=== PATIENT | female | born 1950 | race African-American/Black ===

== ENCOUNTER 2019-11-12 17:34 | Inpatient (IN) | payer OTHER ==
[~2019-11-12] VITALS: Ht 160 cm; Wt 90.7 kg
[2019-11-12 19:12] LABS: Urine Bacteria NONE SEEN /hpf (None Seen); Urine Blood Negative /uL (Negative); Urine Mucus FEW (None Seen); Urine Specific Gravity 1.021 (1.001-1.035); Urine WBC 6 /hpf (0 - 5)
[2019-11-12 19:26] LABS: Alcohol, Urine < 3.0 mg/dL (0-10); Amphetamine Screen, Urine NEGATIVE (NEGATIVE); Barbiturate Scree,Urine NEGATIVE (NEGATIVE); Benzodiazephine Screen, Urine NEGATIVE (NEGATIVE); Cannabinoid Screen, Urine NEGATIVE (NEGATIVE); Cocaine Screen, Urine NEGATIVE (NEGATIVE); Opiate Scree,Urine NEGATIVE (NEGATIVE); Phencyclidine Screen, Urine NEGATIVE (NEGATIVE)
[2019-11-12 19:28] LABS: Basophils # (auto) 0 10 ^3/uL (0-0.2); Basophils % (auto) 0.6 % (0.0-2.0); Eosinophils # (auto) 0 10 ^3/uL (0-0.8); Eosinophils % (auto) 0.3 % (0.0-7.0); Hematocrit 45.4 % (36.0-46.0); Hemoglobin 15.4 g/dL (12.2-16.2); Lymphocytes # (auto) 1.9 10 ^3/uL (0.4-5.4); Lymphocytes % (auto) 32.3 % (10.0-50.0); Mean Corpuscular Hemoglobin 31.9 pg (28.0-32.0); Mean Corpuscular Volume 93.8 fL (80.0-100.0); Monocytes # (auto) 0.6 10 ^3/uL (0-1.3); Monocytes % (auto) 10.5 % (0.0-12.0); Neutrophils # (auto) 3.4 10 ^3/uL (1.6-8.6); Neutrophils % (auto) 56.3 % (37.0-80.0); Nucleated Red Blood Cells % 0.2 %; Platelet Count (auto) 194 10^3/uL (140-450); Red Blood Cells 4.84 10^6/uL (4.0-5.20); Red Cell Distribution Width 13.3 % (11.8-14.3)
[2019-11-12 19:41] LABS: Alanine Aminotransferase 38 U/L (13-56); Albumin 3.7 g/dL (3.4-5.0); Anion Gap 11 (5-15); Aspartate Aminotransferase 29 U/L (15-37); BUN/Creatinine Ratio 8.2; Blood Alcohol < 3.0 mg/dL (0-5); Blood Urea Nitrogen 8 mg/dL (7-18); Calcium 9.5 mg/dL (8.5-10.1); Carbon Dioxide 23 mmol/L (21-32); Chloride 107 mmol/L (98-107); GFR African American 72 mL/min; GFR Non-African American 59 mL/min; Glucose 145 mg/dL (74-106); Potassium 3.6 mmol/L (3.5-5.1); Sodium 141 mmol/L (136-145)
[2019-11-12 19:45] LABS: Alkaline Phosphatase 62 U/L (45-117); Bilirubin, Total 0.4 mg/dL (0.2-1.0); Total Protein 8.2 g/dL (6.4-8.2)
[2019-11-12 19:46] LABS: Lactic Acid w/Reflex 2.4 mmol/L (0.4-2.0)
[2019-11-12] MEDS ORDERED: PIPERACILLIN-TAZOB 3.375GM 100 ML IV ONE (20:00)
[2019-11-12] MEDS ORDERED: SODIUM CHLORIDE 0.9% 500 ML IV ONE (20:00)
[2019-11-12] MEDS ORDERED: cloNIDine HCL 0.1 MG TAB PO ONE (20:15)
[2019-11-12] MEDS ORDERED: VANCOMYCIN 1GM/250ML 250 ML IV ONE (22:45)
[2019-11-12] MEDS ORDERED: SODIUM CHLORIDE 0.9% 1,000 ML IV ONE (22:45)
[2019-11-13] VITALS (7 sets, daily range): BP systolic 136–168; BP diastolic 72–93
[2019-11-13] MEDS ORDERED: MORPHINE SULFATE 4 MG/ML SYR/VIAL IV PRN (02:45)
[2019-11-13] MEDS ORDERED: ACETAMINOPHEN 325 MG TAB PO PRN ×2 (02:45→11:00)
[2019-11-13] MEDS ORDERED: VANCOMYCIN PER PHARMACY 0 MG IV SCH (02:45)
[2019-11-13] MEDS ORDERED: ONDANSETRON HCL 4 MG/2 ML VIAL IV PRN (02:45)
[2019-11-13] MEDS ORDERED: DOCUSATE SOD 100 MG CAP PO PRN (02:45)
[2019-11-13] MEDS ORDERED: MORPHINE SULF INJ 2 MG/ML SYRINGE 1ML IV PRN (02:45)
[2019-11-13] MEDS ORDERED: NITROGLYCERIN 0.4 MG SL TAB SL PRN (02:45)
--- NOTE | 2019-11-13 04:45 | NUR ---
Telemetry admit from ER to [facility] Unit [place] GARCIA admitted to Telemetry unit. Patient oriented to ARACELI WOMACK, primary RN, unit, room, bed, and unit policies regarding patient care and visiting hours. Patient now on continuous telemetry monitoring, tele box # 4 and telemetry reading on arrival to unit is sinus rhythm. Patient is alert and oriented x4. Patient denies pain or shortness of breath at this time. No sign/symptoms of distress noted or verbalized at this time. Instructed on plan of care and encouraged patient to call for assistance as needed, patient verbalized understanding. Bed is locked in lowest position, side rails x 2 are up, and call light is within reach.
[2019-11-13] MEDS ORDERED: LEVO75TA6 PO (05:34)
[2019-11-13] MEDS ORDERED: CYCL15CA PO (06:02)
[2019-11-13] MEDS ORDERED: IBUP100S11 GT (06:02)
[2019-11-13] MEDS ORDERED: BACL10TA PO (06:02)
[2019-11-13] MEDS: SODIUM CHLOR 0.9% PF (SALINE LOCK) 10ML VIAL/SYR IV SCH ×2 (06:23→14:21)
[2019-11-13] MEDS ORDERED: LEVOTHYROXINE SODIUM 25 MCG TAB PO SCH (07:00)
--- NOTE | 2019-11-13 08:00 | NUR ---
ASSESSMENT NOTE PT IS ALERT, ORIENTED X4, SITTING AT THE SIDE OF THE BED,NO DISTRESS NOTED, ON ROOM AIR, ABLE TO SELF REPOSITION AND VERBALIS HER NEEDS, PT CONTINUE A SYMPTOMATIC FOR COVID, MADE AWARE THAT THE SECOND TEST RESULTS IS STILL PENDING, VERBALIS UNDERSTANDING, CALL LIGHT WITHIN REACH
[2019-11-13] MEDS ORDERED: FAMOTIDINE 20 MG TAB PO SCH (10:00)
[2019-11-13] MEDS ORDERED: PANTOPRAZOLE 40 MG/10 ML VIAL INJ IV SCH (10:00)
[2019-11-13] MEDS ORDERED: FUROSEMIDE 20 MG TAB PO SCH (11:00)
[2019-11-13] MEDS ORDERED: amLODIPine BESYLATE 5 MG TAB PO SCH (11:00)
[2019-11-13] MEDS ORDERED: HYDROcodone-ACET 5/325MG TAB PO PRN (11:00)
[2019-11-13] MEDS ORDERED: POTASSIUM CHL 20 Meq TABLET PO SCH (11:00)
[2019-11-13] MEDS ORDERED: VANCOMYCIN 750mg/250ml 250 ML IV SCH (12:00)
--- NOTE | 2019-11-13 12:35 | NUR ---
COVID RESULTS ARE - VE CHARGE NURSE AWARE REPORT GIVEN TO KARMEN Turner RN WITH ALL PATIENT'S UPDATE
--- NOTE | 2019-11-13 12:45 | NUR ---
TRANSFER PT OUT OF THE COVID UNIT, KARMEN Turner RN AT HER SIDE, NO DISTRESS NOTED
--- NOTE | 2019-11-13 12:54 | NUR ---
ASSUMED CARE RECEIVED REPORT FROM SARAI GIBSON. PATIENT TRANSFERRED TO ROOM 217A. NO S/S OF DISTRESS, SOB, PAIN. WILL CONTINUE TO MONITOR
[2019-11-13] MEDS ORDERED: AML5T PO (19:19)
[2019-11-13] MEDS ORDERED: POTA-220 PO (19:19)
[2019-11-13] MEDS ORDERED: FUR20T PO (19:19)
--- NOTE | 2019-11-13 19:42 | NUR ---
Patient heart rate was noted to be 165+. Upon seeing patient she was sitting in bed with no complaints of chest pain. Dr. Mohan was notified and asked to have EKG done.
--- NOTE | 2019-11-13 19:51 | NUR ---
EKG performed and heart rate noted to be at 103 with a rhythm of sinus tachycardia. Dr. Mohan notified of EKG.
--- NOTE | 2019-11-13 20:14 | NUR ---
Dr. Mohan discussed patient EKG with . It was decided to move forward with patient discharge.
--- NOTE | 2019-11-13 20:46 | NUR ---
IV removal IV DC'd with sterile technique, catheter fully intact. Pressure dressing applied to site. Patient tolerated procedure well.
--- NOTE | 2019-11-13 21:19 | NUR ---
Discharge instructions given as ordered. Encourage to follow up with PMD as instructed. All questions and concerns addressed. Patient verbalized understanding. Medication reconciliation form completed and copy given to patient. IV removed with catheter intact, pressure dressing applied. Telemetry unit returned to ICU. Patient taken to vehicle via wheelchair with all personal belongings, accompanied by staff and family member. No distress noted at time of departure. Addendum: 11/13/19 at 0 by ELVIA HILL RN Discharge time 2054
== END 2019-11-13 20:55 | disposition home or self-care (01) | DRG 305 ==
LOC: ER 17:34 → TELE 17:35 → TELE-CENTR 11-13 04:20 → TELE-EAST 11-13 05:11 → TELE-CENTR 11-13 12:45
PROVIDERS: ADMIT Nurse Practitioner Family; ATTEND Internal Medicine
DX: I16.0 Hypertensive urgency (principal); Z20.828 Contact with and (suspected) exposure to other viral communicable diseases; J45.909 Unspecified asthma, uncomplicated; F41.9 Anxiety disorder, unspecified; I10 Essential (primary) hypertension; E78.5 Hyperlipidemia, unspecified; E66.01 Morbid (severe) obesity due to excess calories; E03.9 Hypothyroidism, unspecified; G89.29 Other chronic pain; Z68.35 Body mass index [BMI] 35.0-35.9, adult; Z91.14 Patient's other noncompliance with medication regimen
CPT/HCPCS: 36415; 70450; 71045; 80053; 80307; 80320; 81001; 83036; 83605; 83615; 83880; 84443; 84484; 85025; 87040; 87086; 87426; 93005; C9113; G0378; J2543

== ENCOUNTER 2020-11-26 17:45 | Inpatient (IN) | payer OTHER ==
[~2020-11-26] VITALS: Ht 160 cm; Wt 110.0 kg
[2020-11-26 17:45] VITALS: BP 101/65
[~2020-11-26 17:45] MED LIST: AML5T PO; BACL10TA PO; CYCL15CA PO; FUR20T PO; IBUP100S11 GT; LEVO75TA6 PO; POTA-220 PO
[2020-11-26] MEDS ORDERED: methylPREDNISolone SOD SUCC 125 MG/2 ML VL IV ONE (18:00)
[2020-11-26 18:47] LABS: Hematocrit 47.8 % (36.0-46.0); Hemoglobin 15.9 g/dL (12.2-16.2); Mean Corpuscular Hemoglobin 31.3 pg (28.0-32.0); Mean Corpuscular Hgb Conc. 33.3 g/dL (32.0-36.0); Red Blood Cells 5.09 10^6/uL (4.0-5.20); Red Cell Distribution Width 14.1 % (11.8-14.3)
[2020-11-26 18:49] LABS: Basophils % (manual) 0 (0.0-2.0); Blast Cells 0; Eosinophils % (manual) 0 (0-7); Metamyelocytes % 0; Myelocytes % 0; Promyelocytes % 0; Reactive Lymphocytes 0
[2020-11-26 18:55] LABS: Albumin 2.7 g/dL (3.4-5.0); Anion Gap 15 (5-15); Blood Urea Nitrogen 24 mg/dL (7-18); Calcium 8.5 mg/dL (8.5-10.1); Carbon Dioxide 20 mmol/L (21-32); Chloride 102 mmol/L (98-107); Glucose 209 mg/dL (74-106); Potassium 4.2 mmol/L (3.5-5.1); Sodium 137 mmol/L (136-145)
[2020-11-26 18:57] LABS: Lactic Acid w/Reflex 6.4 mmol/L (0.4-2.0)
[2020-11-26] MEDS ORDERED: AZITHROMYCIN 500MG/ 250ML 250 ML IV ONE (19:00)
[2020-11-26 19:03] LABS: Alanine Aminotransferase 74 U/L (13-56); Alkaline Phosphatase 51 U/L (45-117); Aspartate Aminotransferase 128 U/L (15-37); BUN/Creatinine Ratio 15.6; Bilirubin, Total 0.9 mg/dL (0.2-1.0); GFR African American 43 mL/min; GFR Non-African American 35 mL/min; Total Protein 8.7 g/dL (6.4-8.2)
[2020-11-26 19:18] LABS: Band Neutrophils % (manual) 13; Lymphocytes % (manual) 25 (10.0-50.0); Monocytes % (manual) 3 (0-12)
[2020-11-26] MEDS ORDERED: DEXTROSE (50%) 50ML SYRG IV PRN (19:45)
[2020-11-26] MEDS ORDERED: ALBUTEROL SULF HFA 90MCG INH 200DOSE IN PRN (19:45)
[2020-11-26] MEDS ORDERED: NITROGLYCERIN 0.4 MG SL TAB SL PRN (19:45)
[2020-11-26] MEDS ORDERED: HYDROcodone-ACET 5/325MG TAB PO PRN (19:45)
[2020-11-26] MEDS ORDERED: MORPHINE SULFATE INJECTION 2 MG/ML SYRG IV PRN ×2 (19:45)
[2020-11-26] MEDS ORDERED: REMDESIVIR PER PHARMACY 0 ML IV SCH (19:45)
[2020-11-26] MEDS ORDERED: ACETAMINOPHEN 500 MG TAB PO PRN ×2 (19:45)
[2020-11-26 20:00] VITALS: BP 124/77
[2020-11-26 20:24] VITALS: BP 124/77
[2020-11-26 21:06] VITALS: BP 114/69
[2020-11-26] MEDS ORDERED: BUDESONIDE (INHALATION) 180 MCG IH IN SCH (22:00)
[2020-11-26] MEDS: ACCU-CHEK COMFORT CURVE STRIP VI SCH (23:14)
[2020-11-26] MEDS: ENOXAPARIN SOD 40 MG/0.4 ML SYRINGE SC SCH (23:20)
[2020-11-26] MEDS: InsuLIN REG 1unit/0.01ml Soln (100units/ml) SC SCH (23:21)
[2020-11-26 23:32] VITALS: BP 150/55
[2020-11-27] VITALS (8 sets, daily range): BP systolic 94–143; BP diastolic 42–90
[2020-11-27] MEDS: ACCU-CHEK COMFORT CURVE STRIP VI SCH ×4 (07:21→23:20)
[2020-11-27] MEDS: InsuLIN REG 1unit/0.01ml Soln (100units/ml) SC SCH ×4 (07:26→23:20)
[2020-11-27 07:50] LABS: Basophils # (auto) 0 10 ^3/uL (0-0.2); Basophils % (auto) 0.3 % (0.0-2.0); Eosinophils # (auto) 0 10 ^3/uL (0-0.8); Hematocrit 40.8 % (36.0-46.0); Hemoglobin 13.7 g/dL (12.2-16.2); Lymphocytes # (auto) 1.5 10 ^3/uL (0.4-5.4); Lymphocytes % (auto) 10.1 % (10.0-50.0); Mean Corpuscular Hemoglobin 31.1 pg (28.0-32.0); Mean Corpuscular Hgb Conc. 33.5 g/dL (32.0-36.0); Mean Corpuscular Volume 92.8 fL (80.0-100.0); Monocytes # (auto) 1.2 10 ^3/uL (0-1.3); Monocytes % (auto) 7.7 % (0.0-12.0); Neutrophils # (auto) 12.5 10 ^3/uL (1.6-8.6); Neutrophils % (auto) 81.9 % (37.0-80.0); Nucleated Red Blood Cells % 2.1 %; Red Cell Distribution Width 14.1 % (11.8-14.3); White Blood Cell 15.3 10^3/uL (4.4-10.8)
[2020-11-27 07:58] LABS: Calcium 8.5 mg/dL (8.5-10.1); Potassium 3.7 mmol/L (3.5-5.1)
[2020-11-27 08:03] LABS: BUN/Creatinine Ratio 23.1
[2020-11-27] MEDS: cefTRIAXone 1GM/50ML D5W 50 ML IV SCH (09:10)
[2020-11-27] MEDS: DexAMETHasone SOD PHOS 10MG/1ML VIAL INJ IV SCH (09:55)
[2020-11-27] MEDS: ZINC SULFATE 220mg CAP or TAB PO SCH (09:56)
[2020-11-27] MEDS: IVERMECTIN 3 MG TAB PO SCH (09:56)
[2020-11-27] MEDS: ASCORBIC ACID 1,000 MG TAB PO SCH (09:56)
[2020-11-27] MEDS: ENOXAPARIN SOD 40 MG/0.4 ML SYRINGE SC SCH ×2 (09:56→23:21)
[2020-11-27] MEDS: CHOLECALCIFEROL (VITD3) 2,000 UNIT CAP/TAB PO SCH (09:56)
[2020-11-27] MEDS: AZITHROMYCIN 500MG/ 250ML 250 ML IV SCH (09:56)
[2020-11-27] MEDS: FAMOTIDINE (10MG/ML) 2ML VL IV SCH (11:25)
[2020-11-27] MEDS: BUDESONIDE (INHALATION) 0.5 MG/2 ML NEB NEB SCH ×2 (12:04→19:33)
[2020-11-27] MEDS: ALBUTEROL SULF 2.5 MG/0.5ML(0.5%) NEB SOLN NEB PRN ×2 (12:04→19:33)
[2020-11-27 12:34] LABS: Urine Bacteria FEW /hpf (None Seen); Urine Blood 1+ /uL (Negative); Urine Hyaline Cast FEW /lpf (0 - 2); Urine Mucus FEW (None Seen); Urine Specific Gravity 1.016 (1.001-1.035); Urine WBC 82 /hpf (0 - 5); Urine WBC Clumps PRESENT /hpf (None Seen)
[2020-11-27] MEDS ORDERED: SUCCINYLCHOLINE CHLORIDE 20 MG/ML 10ML VIAL IV ONE ×2 (12:46→13:00)
[2020-11-27] MEDS ORDERED: ETOMIDATE (2MG/ML) 20ML VIAL IV ONE ×2 (12:46→13:00)
[2020-11-27] MEDS ORDERED: MIDAZOLAM DRIP 50 mg/50mL 50 ML IV ONE (12:47)
[2020-11-27] MEDS: MIDAZOLAM DRIP 50 mg/50mL 50 ML IV SCH ×2 (12:55→20:00)
[2020-11-27] MEDS ORDERED: PROPOFOL 100 ML IV ONE (13:03)
[2020-11-27] MEDS: PROPOFOL 100 ML IV SCH (13:17)
[2020-11-27] MEDS ORDERED: NOREPINEPHRINE 8 MG/250ML KIT 250 ML IV ONE (14:03)
[2020-11-27] MEDS ORDERED: ROCURONIUM 10MG/ML 10ML VIAL IV ONE (14:15)
[2020-11-27] MEDS: NOREPINEPHRINE 8 MG/250ML KIT 250 ML IV SCH (14:31)
[2020-11-27] MEDS ORDERED: REMDESIVIR 200 MG in NS 210ml LOADING DOSE ADULT IV ONE (15:00)
[2020-11-27] MEDS ORDERED: fentaNYL Drip 2500mCg/250mlNS 250 ML IV ONE (15:24)
[2020-11-27] MEDS ORDERED: ACETAMINOPHEN 650 MG RECT SUPP PR PRN (15:45)
[2020-11-27] MEDS: fentaNYL Drip 2500mCg/250mlNS 250 ML IV SCH (15:50)
[2020-11-27] MEDS ORDERED: TOCILIZUMAB 400 MG in SODIUM CHL 0.9% 80 ML IV SCH (22:00)
[2020-11-28] VITALS (11 sets, daily range): BP systolic 59–135; BP diastolic 45–62
[2020-11-28] MEDS: BUDESONIDE (INHALATION) 0.5 MG/2 ML NEB NEB SCH ×2 (05:50→19:43)
[2020-11-28] MEDS: ALBUTEROL SULF 2.5 MG/0.5ML(0.5%) NEB SOLN NEB PRN ×3 (05:50→19:43)
[2020-11-28] MEDS: InsuLIN REG 1unit/0.01ml Soln (100units/ml) SC SCH ×3 (07:09→20:02)
[2020-11-28] MEDS: ACCU-CHEK COMFORT CURVE STRIP VI SCH ×5 (07:09→22:20)
[2020-11-28 08:19] LABS: Albumin 2.2 g/dL (3.4-5.0); Calcium 8.1 mg/dL (8.5-10.1); Potassium 3.9 mmol/L (3.5-5.1)
[2020-11-28 08:21] LABS: BUN/Creatinine Ratio 23.5
[2020-11-28 08:23] LABS: Bilirubin, Total 0.6 mg/dL (0.2-1.0); Total Protein 7.4 g/dL (6.4-8.2)
[2020-11-28] MEDS ORDERED: InsuLIN REG 1unit/0.01ml Soln (100units/ml) SC SCH (09:30)
[2020-11-28 09:40] LABS: Basophils # (auto) 0 10 ^3/uL (0-0.2); Basophils % (auto) 0.2 % (0.0-2.0); Eosinophils # (auto) 0 10 ^3/uL (0-0.8); Hematocrit 40.5 % (36.0-46.0); Hemoglobin 13.4 g/dL (12.2-16.2); Lymphocytes # (auto) 1.1 10 ^3/uL (0.4-5.4); Lymphocytes % (auto) 4.7 % (10.0-50.0); Mean Corpuscular Hemoglobin 31.3 pg (28.0-32.0); Mean Corpuscular Hgb Conc. 33.1 g/dL (32.0-36.0); Mean Corpuscular Volume 94.5 fL (80.0-100.0); Monocytes # (auto) 1.8 10 ^3/uL (0-1.3); Neutrophils # (auto) 19.4 10 ^3/uL (1.6-8.6); Neutrophils % (auto) 87.1 % (37.0-80.0); Nucleated Red Blood Cells % 2.4 %; Red Blood Cells 4.28 10^6/uL (4.0-5.20); Red Cell Distribution Width 14.5 % (11.8-14.3); White Blood Cell 22.3 10^3/uL (4.4-10.8)
[2020-11-28] MEDS ORDERED: InsuLIN REG 1unit/0.01ml Soln (100units/ml) ONE (09:43)
[2020-11-28] MEDS: INSULIN LANTUS (GLARGINE) 1 /0.01ml (100units/ml) SC SCH ×3 (10:00→22:19)
[2020-11-28] MEDS: cefTRIAXone 1GM/50ML D5W 50 ML IV SCH (10:12)
[2020-11-28] MEDS: IVERMECTIN 3 MG TAB PO SCH (10:34)
[2020-11-28] MEDS: DexAMETHasone SOD PHOS 10MG/1ML VIAL INJ IV SCH (10:35)
[2020-11-28] MEDS: ZINC SULFATE 220mg CAP or TAB PO SCH (10:36)
[2020-11-28] MEDS: FAMOTIDINE (10MG/ML) 2ML VL IV SCH (10:36)
[2020-11-28] MEDS: ASCORBIC ACID 1,000 MG TAB PO SCH (10:36)
[2020-11-28] MEDS: CHOLECALCIFEROL (VITD3) 2,000 UNIT CAP/TAB PO SCH (10:36)
[2020-11-28] MEDS: ENOXAPARIN SOD 40 MG/0.4 ML SYRINGE SC SCH (10:37)
[2020-11-28] MEDS: AZITHROMYCIN 500MG/ 250ML 250 ML IV SCH (10:59)
[2020-11-28] MEDS: SODIUM BICARB 50ML SYR 50 ML in SOD CHL 0.45% 1,000 ML IV SCH (13:11)
[2020-11-28] MEDS: MIDAZOLAM DRIP 50 mg/50mL 50 ML IV SCH (13:12)
[2020-11-28] MEDS: PROPOFOL 100 ML IV SCH (13:21)
[2020-11-28] MEDS: NOREPINEPHRINE 8 MG/250ML KIT 250 ML IV SCH (14:20)
[2020-11-28] MEDS: fentaNYL Drip 2500mCg/250mlNS 250 ML IV SCH (15:29)
[2020-11-28] MEDS: REMDESIVIR 100mg 100 MG in SODIUM CHL 0.9% 230 ML IV SCH (17:32)
[2020-11-29] VITALS (13 sets, daily range): BP systolic 119–140; BP diastolic 46–69
[2020-11-29] MEDS: ACCU-CHEK COMFORT CURVE STRIP VI SCH ×5 (00:09→20:47)
[2020-11-29] MEDS: InsuLIN REG 1unit/0.01ml Soln (100units/ml) SC SCH ×6 (00:12→20:51)
[2020-11-29] MEDS: MIDAZOLAM DRIP 50 mg/50mL 50 ML IV SCH ×3 (08:06→21:06)
[2020-11-29] MEDS: fentaNYL Drip 2500mCg/250mlNS 250 ML IV SCH (08:06)
[2020-11-29 08:15] LABS: Basophils # (auto) 0 10 ^3/uL (0-0.2); Basophils % (auto) 0.2 % (0.0-2.0); Eosinophils # (auto) 0 10 ^3/uL (0-0.8); Hematocrit 38.3 % (36.0-46.0); Hemoglobin 12.8 g/dL (12.2-16.2); Lymphocytes # (auto) 0.9 10 ^3/uL (0.4-5.4); Lymphocytes % (auto) 4.3 % (10.0-50.0); Mean Corpuscular Hemoglobin 31.4 pg (28.0-32.0); Mean Corpuscular Hgb Conc. 33.4 g/dL (32.0-36.0); Mean Corpuscular Volume 93.9 fL (80.0-100.0); Monocytes # (auto) 1.9 10 ^3/uL (0-1.3); Monocytes % (auto) 9.5 % (0.0-12.0); Neutrophils # (auto) 17.1 10 ^3/uL (1.6-8.6); Nucleated Red Blood Cells % 2.7 %; Red Blood Cells 4.08 10^6/uL (4.0-5.20); Red Cell Distribution Width 14.2 % (11.8-14.3)
[2020-11-29] MEDS: SODIUM BICARB 50ML SYR 50 ML in SOD CHL 0.45% 1,000 ML IV SCH (08:15)
[2020-11-29 08:44] LABS: Bilirubin, Total 0.6 mg/dL (0.2-1.0); Total Protein 7.1 g/dL (6.4-8.2)
[2020-11-29] MEDS: cefTRIAXone 1GM/50ML D5W 50 ML IV SCH (09:00)
[2020-11-29 09:07] LABS: Potassium 4.1 mmol/L (3.5-5.1)
[2020-11-29] MEDS: FAMOTIDINE (10MG/ML) 2ML VL IV SCH (10:00)
[2020-11-29] MEDS: ASCORBIC ACID 1,000 MG TAB PO SCH (10:00)
[2020-11-29] MEDS: CHOLECALCIFEROL (VITD3) 2,000 UNIT CAP/TAB PO SCH (10:00)
[2020-11-29] MEDS: DexAMETHasone SOD PHOS 10MG/1ML VIAL INJ IV SCH (10:00)
[2020-11-29] MEDS: ZINC SULFATE 220mg CAP or TAB PO SCH (10:00)
[2020-11-29] MEDS: ENOXAPARIN SOD 40 MG/0.4 ML SYRINGE SC SCH (10:00)
[2020-11-29] MEDS: INSULIN LANTUS (GLARGINE) 1 /0.01ml (100units/ml) SC SCH ×2 (10:00→22:16)
[2020-11-29] MEDS: AZITHROMYCIN 500MG/ 250ML 250 ML IV SCH (10:00)
[2020-11-29] MEDS: IVERMECTIN 3 MG TAB PO SCH (10:00)
[2020-11-29] MEDS: ALBUTEROL SULF 2.5 MG/0.5ML(0.5%) NEB SOLN NEB PRN ×2 (10:07→23:06)
[2020-11-29] MEDS: BUDESONIDE (INHALATION) 0.5 MG/2 ML NEB NEB SCH ×2 (10:07→23:06)
[2020-11-29] MEDS: NOREPINEPHRINE 8 MG/250ML KIT 250 ML IV SCH (14:15)
[2020-11-29] MEDS: PROPOFOL 100 ML IV SCH (16:53)
[2020-11-29] MEDS: REMDESIVIR 100mg 100 MG in SODIUM CHL 0.9% 230 ML IV SCH (16:54)
[2020-11-30] VITALS (9 sets, daily range): BP systolic 88–130; BP diastolic 48–71
[2020-11-30] MEDS: ACCU-CHEK COMFORT CURVE STRIP VI SCH ×6 (00:16→20:05)
[2020-11-30] MEDS: InsuLIN REG 1unit/0.01ml Soln (100units/ml) SC SCH ×6 (00:20→20:26)
[2020-11-30] MEDS: PROPOFOL 100 ML IV SCH ×3 (01:01→15:27)
[2020-11-30] MEDS: NOREPINEPHRINE 8 MG/250ML KIT 250 ML IV SCH (01:02)
[2020-11-30] MEDS: MIDAZOLAM DRIP 50 mg/50mL 50 ML IV SCH ×2 (01:03→15:27)
[2020-11-30] MEDS: ALBUTEROL SULF 2.5 MG/0.5ML(0.5%) NEB SOLN NEB PRN ×2 (06:04→21:59)
[2020-11-30] MEDS: BUDESONIDE (INHALATION) 0.5 MG/2 ML NEB NEB SCH ×2 (06:04→21:59)
[2020-11-30 07:46] LABS: Albumin 1.8 g/dL (3.4-5.0); Anion Gap 5 (5-15); Blood Urea Nitrogen 31 mg/dL (7-18); Carbon Dioxide 27 mmol/L (21-32); Chloride 106 mmol/L (98-107); Glucose 294 mg/dL (74-106); Potassium 4.6 mmol/L (3.5-5.1); Sodium 138 mmol/L (136-145)
[2020-11-30 07:48] LABS: Hematocrit 36.7 % (36.0-46.0); Hemoglobin 12.7 g/dL (12.2-16.2); Mean Corpuscular Hemoglobin 32.6 pg (28.0-32.0); Mean Corpuscular Hgb Conc. 34.6 g/dL (32.0-36.0); Mean Corpuscular Volume 94.4 fL (80.0-100.0); Red Blood Cells 3.88 10^6/uL (4.0-5.20); Red Cell Distribution Width 14.6 % (11.8-14.3)
[2020-11-30 07:50] LABS: Alanine Aminotransferase 41 U/L (13-56); Alkaline Phosphatase 72 U/L (45-117); Aspartate Aminotransferase 59 U/L (15-37); BUN/Creatinine Ratio 22.6; Bilirubin, Total 0.6 mg/dL (0.2-1.0); GFR African American 49 mL/min; GFR Non-African American 40 mL/min; Total Protein 6.7 g/dL (6.4-8.2)
[2020-11-30 07:53] LABS: Basophils % (manual) 0 (0.0-2.0); Blast Cells 0; Eosinophils % (manual) 0 (0-7); Myelocytes % 0; Promyelocytes % 0; Reactive Lymphocytes 0
[2020-11-30 08:39] LABS: CRP High Sensitivity > 0.950 mg/dL (< 0.3)
[2020-11-30] MEDS: SODIUM BICARB 50ML SYR 50 ML in SOD CHL 0.45% 1,000 ML IV SCH (08:57)
[2020-11-30] MEDS: cefTRIAXone 1GM/50ML D5W 50 ML IV SCH (09:23)
[2020-11-30] MEDS: AZITHROMYCIN 500MG/ 250ML 250 ML IV SCH (10:00)
[2020-11-30] MEDS: INSULIN LANTUS (GLARGINE) 1 /0.01ml (100units/ml) SC SCH ×2 (10:00→22:30)
[2020-11-30] MEDS: DexAMETHasone SOD PHOS 10MG/1ML VIAL INJ IV SCH (10:33)
[2020-11-30] MEDS: ENOXAPARIN SOD 40 MG/0.4 ML SYRINGE SC SCH ×2 (10:33→22:30)
[2020-11-30] MEDS: FAMOTIDINE (10MG/ML) 2ML VL IV SCH (10:33)
[2020-11-30] MEDS: ZINC SULFATE 220mg CAP or TAB PO SCH (10:33)
[2020-11-30] MEDS: ASCORBIC ACID 1,000 MG TAB PO SCH (10:34)
[2020-11-30] MEDS: CHOLECALCIFEROL (VITD3) 2,000 UNIT CAP/TAB PO SCH (10:34)
[2020-11-30] MEDS: IVERMECTIN 3 MG TAB PO SCH (10:34)
[2020-11-30 14:18] LABS: Band Neutrophils % (manual) 6; Lymphocytes % (manual) 5 (10.0-50.0); Metamyelocytes % 1; Monocytes % (manual) 9 (0-12)
[2020-11-30] MEDS: REMDESIVIR 100mg 100 MG in SODIUM CHL 0.9% 230 ML IV SCH (15:26)
[2020-11-30] MEDS: fentaNYL Drip 2500mCg/250mlNS 250 ML IV SCH (15:40)
[2020-12-01] VITALS (9 sets, daily range): BP systolic 90–130; BP diastolic 48–69
[2020-12-01] MEDS: ACCU-CHEK COMFORT CURVE STRIP VI SCH ×6 (00:09→21:21)
[2020-12-01] MEDS: InsuLIN REG 1unit/0.01ml Soln (100units/ml) SC SCH ×6 (00:12→21:21)
[2020-12-01] MEDS: SODIUM BICARB 50ML SYR 50 ML in SOD CHL 0.45% 1,000 ML IV SCH ×2 (02:19→23:15)
[2020-12-01] MEDS: BUDESONIDE (INHALATION) 0.5 MG/2 ML NEB NEB SCH ×2 (07:19→21:44)
[2020-12-01 07:22] LABS: Hematocrit 35.7 % (36.0-46.0); Mean Corpuscular Hemoglobin 31.5 pg (28.0-32.0); Mean Corpuscular Hgb Conc. 33.5 g/dL (32.0-36.0); Mean Corpuscular Volume 94.1 fL (80.0-100.0); Red Cell Distribution Width 14.4 % (11.8-14.3); White Blood Cell 15.2 10^3/uL (4.4-10.8)
[2020-12-01 07:27] LABS: Albumin 1.6 g/dL (3.4-5.0); Calcium 7.9 mg/dL (8.5-10.1); Potassium 4.1 mmol/L (3.5-5.1)
[2020-12-01 07:29] LABS: BUN/Creatinine Ratio 22.6
[2020-12-01 07:38] LABS: Bilirubin, Total 0.4 mg/dL (0.2-1.0); Total Protein 6.1 g/dL (6.4-8.2)
[2020-12-01 08:06] LABS: Basophils % (manual) 0 (0.0-2.0); Blast Cells 0; Eosinophils % (manual) 0 (0-7); Promyelocytes % 0; Reactive Lymphocytes 0
[2020-12-01] MEDS: ASCORBIC ACID 1,000 MG TAB PO SCH (10:00)
[2020-12-01] MEDS ORDERED: Glucerna 1.2 Cal 1Liter BOTTLE GT SCH (10:00)
[2020-12-01] MEDS: PROPOFOL 100 ML IV SCH ×4 (10:15→22:42)
[2020-12-01] MEDS: CHOLECALCIFEROL (VITD3) 2,000 UNIT CAP/TAB PO SCH (11:08)
[2020-12-01] MEDS: IVERMECTIN 3 MG TAB PO SCH (11:08)
[2020-12-01] MEDS: DexAMETHasone SOD PHOS 10MG/1ML VIAL INJ IV SCH (11:08)
[2020-12-01] MEDS: ENOXAPARIN SOD 40 MG/0.4 ML SYRINGE SC SCH ×2 (11:08→21:36)
[2020-12-01] MEDS: INSULIN LANTUS (GLARGINE) 1 /0.01ml (100units/ml) SC SCH ×2 (11:08→21:35)
[2020-12-01] MEDS: FAMOTIDINE (10MG/ML) 2ML VL IV SCH (11:08)
[2020-12-01] MEDS: ZINC SULFATE 220mg CAP or TAB PO SCH (11:08)
[2020-12-01] MEDS: MIDAZOLAM DRIP 50 mg/50mL 50 ML IV SCH ×3 (14:15→22:42)
[2020-12-01] MEDS: REMDESIVIR 100mg 100 MG in SODIUM CHL 0.9% 230 ML IV SCH (15:12)
[2020-12-01] MEDS: fentaNYL Drip 2500mCg/250mlNS 250 ML IV SCH (18:51)
[2020-12-01 20:05] LABS: Band Neutrophils % (manual) 5; Lymphocytes % (manual) 7 (10.0-50.0); Metamyelocytes % 1; Monocytes % (manual) 12 (0-12); Myelocytes % 1
[2020-12-01] MEDS: NOREPINEPHRINE 8 MG/250ML KIT 250 ML IV SCH (21:27)
[2020-12-01] MEDS: ALBUTEROL SULF 2.5 MG/0.5ML(0.5%) NEB SOLN NEB PRN (21:44)
[2020-12-02] VITALS (7 sets, daily range): BP systolic 105–122; BP diastolic 48–59
[2020-12-02] MEDS: ACCU-CHEK COMFORT CURVE STRIP VI SCH ×7 (00:06→23:38)
[2020-12-02] MEDS: InsuLIN REG 1unit/0.01ml Soln (100units/ml) SC SCH ×7 (00:07→23:39)
[2020-12-02] MEDS: PROPOFOL 100 ML IV SCH (03:33)
[2020-12-02] MEDS: MIDAZOLAM DRIP 50 mg/50mL 50 ML IV SCH (05:38)
[2020-12-02] MEDS: BUDESONIDE (INHALATION) 0.5 MG/2 ML NEB NEB SCH ×2 (06:51→18:44)
[2020-12-02] MEDS: ASCORBIC ACID 1,000 MG TAB PO SCH (10:33)
[2020-12-02] MEDS: FAMOTIDINE (10MG/ML) 2ML VL IV SCH (10:33)
[2020-12-02] MEDS: ZINC SULFATE 220mg CAP or TAB PO SCH (10:33)
[2020-12-02] MEDS: DexAMETHasone SOD PHOS 10MG/1ML VIAL INJ IV SCH (10:33)
[2020-12-02] MEDS: CHOLECALCIFEROL (VITD3) 2,000 UNIT CAP/TAB PO SCH (10:33)
[2020-12-02] MEDS: ENOXAPARIN SOD 40 MG/0.4 ML SYRINGE SC SCH ×2 (10:34→22:00)
[2020-12-02] MEDS: INSULIN LANTUS (GLARGINE) 1 /0.01ml (100units/ml) SC SCH ×2 (10:34→23:38)
[2020-12-02] MEDS: NOREPINEPHRINE 8 MG/250ML KIT 250 ML IV SCH (14:15)
[2020-12-02] MEDS: fentaNYL Drip 2500mCg/250mlNS 250 ML IV SCH (15:35)
[2020-12-02] MEDS: ALBUTEROL SULF 2.5 MG/0.5ML(0.5%) NEB SOLN NEB PRN (18:44)
[2020-12-02] MEDS: SODIUM BICARB 50ML SYR 50 ML in SOD CHL 0.45% 1,000 ML IV SCH (20:00)
[2020-12-03] VITALS (58 sets, daily range): BP systolic 110–156; BP diastolic 52–79
[2020-12-03] MEDS: PROPOFOL 100 ML IV SCH ×3 (03:44→21:16)
[2020-12-03] MEDS: ACCU-CHEK COMFORT CURVE STRIP VI SCH ×4 (04:22→20:06)
[2020-12-03] MEDS: InsuLIN REG 1unit/0.01ml Soln (100units/ml) SC SCH ×4 (04:23→20:00)
[2020-12-03 06:17] LABS: Basophils # (auto) 0 10 ^3/uL (0-0.2); Basophils % (auto) 0.2 % (0.0-2.0); Eosinophils # (auto) 0 10 ^3/uL (0-0.8); Hematocrit 35.8 % (36.0-46.0); Hemoglobin 11.9 g/dL (12.2-16.2); Lymphocytes # (auto) 1.1 10 ^3/uL (0.4-5.4); Lymphocytes % (auto) 10.1 % (10.0-50.0); Mean Corpuscular Hemoglobin 31.7 pg (28.0-32.0); Mean Corpuscular Hgb Conc. 33.3 g/dL (32.0-36.0); Mean Corpuscular Volume 95.1 fL (80.0-100.0); Monocytes # (auto) 0.9 10 ^3/uL (0-1.3); Neutrophils # (auto) 8.8 10 ^3/uL (1.6-8.6); Neutrophils % (auto) 81.7 % (37.0-80.0); Nucleated Red Blood Cells % 2.8 %; Red Blood Cells 3.77 10^6/uL (4.0-5.20); Red Cell Distribution Width 14.8 % (11.8-14.3); White Blood Cell 10.8 10^3/uL (4.4-10.8)
[2020-12-03 06:31] LABS: Potassium 4.2 mmol/L (3.5-5.1)
[2020-12-03 06:40] LABS: BUN/Creatinine Ratio 45.8; Calcium 8.1 mg/dL (8.5-10.1)
[2020-12-03] MEDS: BUDESONIDE (INHALATION) 0.5 MG/2 ML NEB NEB SCH ×2 (07:34→22:15)
[2020-12-03] MEDS: ALBUTEROL SULF 2.5 MG/0.5ML(0.5%) NEB SOLN NEB PRN ×2 (07:34→22:15)
[2020-12-03] MEDS: MIDAZOLAM DRIP 50 mg/50mL 50 ML IV SCH ×2 (08:15→15:40)
[2020-12-03] MEDS: SODIUM BICARB 50ML SYR 50 ML in SOD CHL 0.45% 1,000 ML IV SCH (09:58)
[2020-12-03] MEDS: INSULIN LANTUS (GLARGINE) 1 /0.01ml (100units/ml) SC SCH ×2 (10:00→22:00)
[2020-12-03] MEDS: ASCORBIC ACID 1,000 MG TAB PO SCH (11:29)
[2020-12-03] MEDS: DexAMETHasone SOD PHOS 10MG/1ML VIAL INJ IV SCH (11:29)
[2020-12-03] MEDS: FAMOTIDINE (10MG/ML) 2ML VL IV SCH (11:29)
[2020-12-03] MEDS: CHOLECALCIFEROL (VITD3) 2,000 UNIT CAP/TAB PO SCH (11:29)
[2020-12-03] MEDS: ZINC SULFATE 220mg CAP or TAB PO SCH (11:29)
[2020-12-03] MEDS: ENOXAPARIN SOD 40 MG/0.4 ML SYRINGE SC SCH ×2 (11:30→21:44)
[2020-12-03] MEDS: NOREPINEPHRINE 8 MG/250ML KIT 250 ML IV SCH (14:15)
[2020-12-03] MEDS: fentaNYL Drip 2500mCg/250mlNS 250 ML IV SCH (15:41)
[2020-12-03] MEDS: FUROSEMIDE 40 MG/4 ML VIAL IV SCH (20:11)
[2020-12-04] VITALS (91 sets, daily range): BP systolic 106–143; BP diastolic 37–67
[2020-12-04] MEDS: MIDAZOLAM DRIP 50 mg/50mL 50 ML IV SCH ×3 (00:22→17:45)
[2020-12-04] MEDS: fentaNYL Drip 2500mCg/250mlNS 250 ML IV SCH ×2 (01:00→15:06)
[2020-12-04] MEDS: ACCU-CHEK COMFORT CURVE STRIP VI SCH ×4 (03:55→12:27)
[2020-12-04] MEDS: InsuLIN REG 1unit/0.01ml Soln (100units/ml) SC SCH ×4 (03:56→12:00)
[2020-12-04 05:14] LABS: Calcium 8.2 mg/dL (8.5-10.1); Potassium 4.1 mmol/L (3.5-5.1)
[2020-12-04 05:17] LABS: BUN/Creatinine Ratio 37.5
[2020-12-04 05:26] LABS: CRP High Sensitivity 12.6 mg/dL (< 0.3)
[2020-12-04 05:27] LABS: Hematocrit 35.4 % (36.0-46.0); Hemoglobin 11.5 g/dL (12.2-16.2); Mean Corpuscular Hemoglobin 31.3 pg (28.0-32.0); Mean Corpuscular Hgb Conc. 32.6 g/dL (32.0-36.0); Mean Corpuscular Volume 95.9 fL (80.0-100.0); Red Blood Cells 3.69 10^6/uL (4.0-5.20); Red Cell Distribution Width 14.8 % (11.8-14.3); White Blood Cell 11.2 10^3/uL (4.4-10.8)
[2020-12-04 05:28] LABS: Basophils % (manual) 0 (0.0-2.0); Blast Cells 0; Eosinophils % (manual) 0 (0-7); Metamyelocytes % 0; Promyelocytes % 0; Reactive Lymphocytes 0
[2020-12-04] MEDS: FUROSEMIDE 40 MG/4 ML VIAL IV SCH ×2 (05:33→18:00)
[2020-12-04] MEDS: ALBUTEROL SULF 2.5 MG/0.5ML(0.5%) NEB SOLN NEB PRN ×2 (06:23→22:21)
[2020-12-04] MEDS: BUDESONIDE (INHALATION) 0.5 MG/2 ML NEB NEB SCH ×2 (06:23→22:21)
[2020-12-04 07:08] LABS: Band Neutrophils % (manual) 12; Lymphocytes % (manual) 14 (10.0-50.0); Monocytes % (manual) 10 (0-12); Myelocytes % 4
[2020-12-04] MEDS: PROPOFOL 100 ML IV SCH ×2 (09:53→16:36)
[2020-12-04] MEDS: DexAMETHasone SOD PHOS 10MG/1ML VIAL INJ IV SCH (09:58)
[2020-12-04] MEDS: ENOXAPARIN SOD 40 MG/0.4 ML SYRINGE SC SCH (09:58)
[2020-12-04] MEDS: ASCORBIC ACID 1,000 MG TAB PO SCH (09:58)
[2020-12-04] MEDS: FAMOTIDINE (10MG/ML) 2ML VL IV SCH (09:58)
[2020-12-04] MEDS: ZINC SULFATE 220mg CAP or TAB PO SCH (09:58)
[2020-12-04] MEDS: CHOLECALCIFEROL (VITD3) 2,000 UNIT CAP/TAB PO SCH (09:58)
[2020-12-04] MEDS: INSULIN LANTUS (GLARGINE) 1 /0.01ml (100units/ml) SC SCH ×2 (09:59→22:00)
[2020-12-04] MEDS: SODIUM BICARB 50ML SYR 50 ML in SOD CHL 0.45% 1,000 ML IV SCH (14:15)
[2020-12-04] MEDS: NOREPINEPHRINE 8 MG/250ML KIT 250 ML IV SCH (14:15)
[2020-12-04] MEDS: SOD CHL 0.45% 1,000 ML IV SCH (17:45)
[2020-12-05] VITALS (84 sets, daily range): BP systolic 107–139; BP diastolic 44–65
[2020-12-05] MEDS: ENOXAPARIN SOD 40 MG/0.4 ML SYRINGE SC SCH ×3 (00:30→22:00)
[2020-12-05] MEDS: ACCU-CHEK COMFORT CURVE STRIP VI SCH ×3 (00:30→14:15)
[2020-12-05] MEDS: InsuLIN REG 1unit/0.01ml Soln (100units/ml) SC SCH ×3 (00:30→14:15)
[2020-12-05] MEDS: FUROSEMIDE 40 MG/4 ML VIAL IV SCH (06:12)
[2020-12-05] MEDS: SOD CHL 0.45% 1,000 ML IV SCH ×2 (06:13→20:10)
[2020-12-05 06:36] LABS: Basophils # (auto) 0.1 10 ^3/uL (0-0.2); Basophils % (auto) 0.9 % (0.0-2.0); Eosinophils # (auto) 0 10 ^3/uL (0-0.8); Eosinophils % (auto) 0.1 % (0.0-7.0); Hematocrit 34.9 % (36.0-46.0); Hemoglobin 11.5 g/dL (12.2-16.2); Lymphocytes # (auto) 0.7 10 ^3/uL (0.4-5.4); Lymphocytes % (auto) 6.4 % (10.0-50.0); Mean Corpuscular Hemoglobin 31.4 pg (28.0-32.0); Mean Corpuscular Hgb Conc. 32.8 g/dL (32.0-36.0); Mean Corpuscular Volume 95.7 fL (80.0-100.0); Monocytes % (auto) 8.7 % (0.0-12.0); Neutrophils # (auto) 9.4 10 ^3/uL (1.6-8.6); Neutrophils % (auto) 83.9 % (37.0-80.0); Nucleated Red Blood Cells % 0.3 %; Red Blood Cells 3.65 10^6/uL (4.0-5.20); Red Cell Distribution Width 14.7 % (11.8-14.3); White Blood Cell 11.2 10^3/uL (4.4-10.8)
[2020-12-05 06:42] LABS: Potassium 4.3 mmol/L (3.5-5.1)
[2020-12-05 06:55] LABS: CRP High Sensitivity 15.7 mg/dL (< 0.3); Calcium 8.5 mg/dL (8.5-10.1)
[2020-12-05] MEDS: ALBUTEROL SULF 2.5 MG/0.5ML(0.5%) NEB SOLN NEB PRN ×2 (07:14→21:52)
[2020-12-05] MEDS: BUDESONIDE (INHALATION) 0.5 MG/2 ML NEB NEB SCH ×2 (07:15→21:52)
[2020-12-05] MEDS: DexAMETHasone SOD PHOS 10MG/1ML VIAL INJ IV SCH (09:38)
[2020-12-05] MEDS: ZINC SULFATE 220mg CAP or TAB PO SCH (09:39)
[2020-12-05] MEDS: CHOLECALCIFEROL (VITD3) 2,000 UNIT CAP/TAB PO SCH (09:39)
[2020-12-05] MEDS: FAMOTIDINE (10MG/ML) 2ML VL IV SCH (09:39)
[2020-12-05] MEDS: ASCORBIC ACID 1,000 MG TAB PO SCH (09:39)
[2020-12-05] MEDS: INSULIN LANTUS (GLARGINE) 1 /0.01ml (100units/ml) SC SCH ×2 (10:00→22:00)
[2020-12-05] MEDS: MIDAZOLAM DRIP 50 mg/50mL 50 ML IV SCH (11:12)
[2020-12-05] MEDS ORDERED: METOCLOPRAMIDE HCL 5MG/ml INJ 2ml VIAL IV SCH (14:00)
[2020-12-05] MEDS: NOREPINEPHRINE 8 MG/250ML KIT 250 ML IV SCH (14:15)
[2020-12-05] MEDS: fentaNYL Drip 2500mCg/250mlNS 250 ML IV SCH (15:26)
[2020-12-06] VITALS (76 sets, daily range): BP systolic 126–146; BP diastolic 54–66
[2020-12-06] MEDS: InsuLIN REG 1unit/0.01ml Soln (100units/ml) SC SCH ×4 (00:15→22:31)
[2020-12-06] MEDS: ACCU-CHEK COMFORT CURVE STRIP VI SCH ×4 (00:15→22:30)
[2020-12-06] MEDS: BUDESONIDE (INHALATION) 0.5 MG/2 ML NEB NEB SCH ×2 (06:30→18:59)
[2020-12-06] MEDS: ALBUTEROL SULF 2.5 MG/0.5ML(0.5%) NEB SOLN NEB PRN ×2 (06:30→18:59)
[2020-12-06 07:36] LABS: Basophils # (auto) 0 10 ^3/uL (0-0.2); Basophils % (auto) 0.3 % (0.0-2.0); Eosinophils # (auto) 0 10 ^3/uL (0-0.8); Eosinophils % (auto) 0.1 % (0.0-7.0); Hematocrit 33.8 % (36.0-46.0); Hemoglobin 10.8 g/dL (12.2-16.2); Lymphocytes # (auto) 0.9 10 ^3/uL (0.4-5.4); Lymphocytes % (auto) 7.6 % (10.0-50.0); Mean Corpuscular Hemoglobin 30.9 pg (28.0-32.0); Mean Corpuscular Hgb Conc. 32.1 g/dL (32.0-36.0); Mean Corpuscular Volume 96.4 fL (80.0-100.0); Monocytes # (auto) 1.4 10 ^3/uL (0-1.3); Monocytes % (auto) 12.4 % (0.0-12.0); Neutrophils # (auto) 9.2 10 ^3/uL (1.6-8.6); Neutrophils % (auto) 79.6 % (37.0-80.0); Nucleated Red Blood Cells % 0.2 %; Red Cell Distribution Width 14.6 % (11.8-14.3); White Blood Cell 11.6 10^3/uL (4.4-10.8)
[2020-12-06 07:53] LABS: Calcium 8.2 mg/dL (8.5-10.1); Potassium 4.3 mmol/L (3.5-5.1)
[2020-12-06 08:02] LABS: BUN/Creatinine Ratio 41.5; CRP High Sensitivity 11.4 mg/dL (< 0.3)
[2020-12-06] MEDS: ASCORBIC ACID 1,000 MG TAB PO SCH (10:30)
[2020-12-06] MEDS: FAMOTIDINE (10MG/ML) 2ML VL IV SCH (10:30)
[2020-12-06] MEDS: CHOLECALCIFEROL (VITD3) 2,000 UNIT CAP/TAB PO SCH (10:30)
[2020-12-06] MEDS: ENOXAPARIN SOD 40 MG/0.4 ML SYRINGE SC SCH ×2 (10:30→22:27)
[2020-12-06] MEDS: ZINC SULFATE 220mg CAP or TAB PO SCH (10:30)
[2020-12-06] MEDS: DexAMETHasone SOD PHOS 10MG/1ML VIAL INJ IV SCH (10:30)
[2020-12-06] MEDS: SOD CHL 0.45% 1,000 ML IV SCH ×2 (11:10→22:11)
[2020-12-06] MEDS: PROPOFOL 100 ML IV SCH (16:46)
[2020-12-06] MEDS: fentaNYL Drip 2500mCg/250mlNS 250 ML IV SCH (22:09)
[2020-12-06] MEDS: INSULIN LANTUS (GLARGINE) 1 /0.01ml (100units/ml) SC SCH (22:31)
[2020-12-07] VITALS (102 sets, daily range): BP systolic 126–164; BP diastolic 53–75
[2020-12-07] MEDS: MIDAZOLAM DRIP 50 mg/50mL 50 ML IV SCH ×3 (02:28→15:30)
[2020-12-07 03:42] LABS: Basophils # (auto) 0 10 ^3/uL (0-0.2); Basophils % (auto) 0.3 % (0.0-2.0); Eosinophils # (auto) 0 10 ^3/uL (0-0.8); Hematocrit 33.8 % (36.0-46.0); Hemoglobin 10.8 g/dL (12.2-16.2); Lymphocytes % (auto) 9.4 % (10.0-50.0); Mean Corpuscular Hemoglobin 30.6 pg (28.0-32.0); Mean Corpuscular Hgb Conc. 31.8 g/dL (32.0-36.0); Monocytes # (auto) 1.3 10 ^3/uL (0-1.3); Monocytes % (auto) 12.2 % (0.0-12.0); Neutrophils # (auto) 8.2 10 ^3/uL (1.6-8.6); Neutrophils % (auto) 78.1 % (37.0-80.0); Nucleated Red Blood Cells % 0.1 %; Red Blood Cells 3.52 10^6/uL (4.0-5.20); Red Cell Distribution Width 14.5 % (11.8-14.3); White Blood Cell 10.5 10^3/uL (4.4-10.8)
[2020-12-07] MEDS: PROPOFOL 100 ML IV SCH ×3 (03:42→15:30)
[2020-12-07 04:13] LABS: Calcium 8.2 mg/dL (8.5-10.1); Potassium 4.3 mmol/L (3.5-5.1)
[2020-12-07 04:23] LABS: BUN/Creatinine Ratio 39.3; CRP High Sensitivity 8.35 mg/dL (< 0.3)
[2020-12-07] MEDS: InsuLIN REG 1unit/0.01ml Soln (100units/ml) SC SCH ×3 (06:22→21:39)
[2020-12-07] MEDS: ACCU-CHEK COMFORT CURVE STRIP VI SCH ×3 (06:22→21:37)
[2020-12-07] MEDS: NOREPINEPHRINE 8 MG/250ML KIT 250 ML IV SCH (07:47)
[2020-12-07] MEDS: CHOLECALCIFEROL (VITD3) 2,000 UNIT CAP/TAB PO SCH (08:44)
[2020-12-07] MEDS: ZINC SULFATE 220mg CAP or TAB PO SCH (08:44)
[2020-12-07] MEDS: ASCORBIC ACID 1,000 MG TAB PO SCH (08:44)
[2020-12-07] MEDS: SOD CHL 0.45% 1,000 ML IV SCH ×2 (08:46→18:54)
[2020-12-07] MEDS: FAMOTIDINE (10MG/ML) 2ML VL IV SCH (09:34)
[2020-12-07] MEDS: DexAMETHasone SOD PHOS 10MG/1ML VIAL INJ IV SCH (09:34)
[2020-12-07] MEDS: ENOXAPARIN SOD 40 MG/0.4 ML SYRINGE SC SCH ×2 (09:35→21:37)
[2020-12-07] MEDS: fentaNYL Drip 2500mCg/250mlNS 250 ML IV SCH ×2 (10:38→21:23)
[2020-12-07] MEDS: ALBUTEROL SULF 2.5 MG/0.5ML(0.5%) NEB SOLN NEB PRN (12:46)
[2020-12-07] MEDS: BUDESONIDE (INHALATION) 0.5 MG/2 ML NEB NEB SCH ×2 (12:46→22:27)
[2020-12-07] MEDS ORDERED: FUROSEMIDE 40 MG/4 ML VIAL IV ONE (19:30)
[2020-12-07] MEDS: INSULIN LANTUS (GLARGINE) 1 /0.01ml (100units/ml) SC SCH (21:38)
[2020-12-08] VITALS (104 sets, daily range): BP systolic 123–167; BP diastolic 51–78
[2020-12-08] MEDS: MIDAZOLAM DRIP 50 mg/50mL 50 ML IV SCH (03:14)
[2020-12-08] MEDS: PROPOFOL 100 ML IV SCH (03:14)
[2020-12-08 03:51] LABS: Basophils # (auto) 0.1 10 ^3/uL (0-0.2); Basophils % (auto) 0.7 % (0.0-2.0); Eosinophils # (auto) 0 10 ^3/uL (0-0.8); Hematocrit 34.1 % (36.0-46.0); Hemoglobin 11.3 g/dL (12.2-16.2); Lymphocytes # (auto) 1.6 10 ^3/uL (0.4-5.4); Lymphocytes % (auto) 14.5 % (10.0-50.0); Mean Corpuscular Hemoglobin 31.5 pg (28.0-32.0); Mean Corpuscular Hgb Conc. 33.1 g/dL (32.0-36.0); Monocytes # (auto) 1.4 10 ^3/uL (0-1.3); Monocytes % (auto) 12.6 % (0.0-12.0); Neutrophils # (auto) 7.8 10 ^3/uL (1.6-8.6); Neutrophils % (auto) 72.2 % (37.0-80.0); Nucleated Red Blood Cells % 0.2 %; Red Blood Cells 3.59 10^6/uL (4.0-5.20); Red Cell Distribution Width 14.4 % (11.8-14.3); White Blood Cell 10.8 10^3/uL (4.4-10.8)
[2020-12-08 04:08] LABS: BUN/Creatinine Ratio 37.5; Calcium 8.2 mg/dL (8.5-10.1); Potassium 3.7 mmol/L (3.5-5.1)
[2020-12-08 04:17] LABS: CRP High Sensitivity 7.05 mg/dL (< 0.3)
[2020-12-08] MEDS: ACCU-CHEK COMFORT CURVE STRIP VI SCH ×3 (05:50→21:31)
[2020-12-08] MEDS: InsuLIN REG 1unit/0.01ml Soln (100units/ml) SC SCH ×3 (05:52→21:33)
[2020-12-08] MEDS: ALBUTEROL SULF 2.5 MG/0.5ML(0.5%) NEB SOLN NEB PRN ×2 (06:07→22:11)
[2020-12-08] MEDS: BUDESONIDE (INHALATION) 0.5 MG/2 ML NEB NEB SCH ×2 (06:07→22:11)
[2020-12-08] MEDS: SOD CHL 0.45% 1,000 ML IV SCH ×2 (07:09→21:30)
[2020-12-08] MEDS: FAMOTIDINE (10MG/ML) 2ML VL IV SCH (10:00)
[2020-12-08] MEDS: ENOXAPARIN SOD 40 MG/0.4 ML SYRINGE SC SCH ×2 (10:00→21:30)
[2020-12-08] MEDS: ASCORBIC ACID 1,000 MG TAB PO SCH (10:00)
[2020-12-08] MEDS: DexAMETHasone SOD PHOS 10MG/1ML VIAL INJ IV SCH (10:00)
[2020-12-08] MEDS: ZINC SULFATE 220mg CAP or TAB PO SCH (10:00)
[2020-12-08] MEDS: CHOLECALCIFEROL (VITD3) 2,000 UNIT CAP/TAB PO SCH (10:00)
[2020-12-08] MEDS: NOREPINEPHRINE 8 MG/250ML KIT 250 ML IV SCH ×2 (14:39→15:15)
[2020-12-08] MEDS ORDERED: fentaNYL Drip 2500mCg/250mlNS 250 ML IV ONE (20:32)
[2020-12-08] MEDS: INSULIN LANTUS (GLARGINE) 1 /0.01ml (100units/ml) SC SCH (21:32)
[2020-12-08] MEDS: fentaNYL Drip 2500mCg/250mlNS 250 ML IV SCH (21:45)
[2020-12-09] VITALS (102 sets, daily range): BP systolic 122–234; BP diastolic 49–149
[2020-12-09] MEDS: MIDAZOLAM DRIP 50 mg/50mL 50 ML IV SCH ×3 (03:49→23:50)
[2020-12-09] MEDS: PROPOFOL 100 ML IV SCH ×2 (03:50→23:03)
[2020-12-09 03:53] LABS: Basophils # (auto) 0 10 ^3/uL (0-0.2); Basophils % (auto) 0.3 % (0.0-2.0); Eosinophils # (auto) 0.1 10 ^3/uL (0-0.8); Eosinophils % (auto) 0.4 % (0.0-7.0); Hematocrit 34.6 % (36.0-46.0); Hemoglobin 11.3 g/dL (12.2-16.2); Lymphocytes # (auto) 1.5 10 ^3/uL (0.4-5.4); Lymphocytes % (auto) 11.7 % (10.0-50.0); Mean Corpuscular Hemoglobin 31.5 pg (28.0-32.0); Mean Corpuscular Hgb Conc. 32.7 g/dL (32.0-36.0); Mean Corpuscular Volume 96.2 fL (80.0-100.0); Monocytes # (auto) 1.2 10 ^3/uL (0-1.3); Monocytes % (auto) 9.7 % (0.0-12.0); Neutrophils # (auto) 9.8 10 ^3/uL (1.6-8.6); Neutrophils % (auto) 77.9 % (37.0-80.0); Nucleated Red Blood Cells % 0.1 %; Red Blood Cells 3.59 10^6/uL (4.0-5.20); Red Cell Distribution Width 14.5 % (11.8-14.3); White Blood Cell 12.5 10^3/uL (4.4-10.8)
[2020-12-09 04:11] LABS: Calcium 8.1 mg/dL (8.5-10.1)
[2020-12-09 04:22] LABS: CRP High Sensitivity 14.2 mg/dL (< 0.3)
[2020-12-09 04:39] LABS: BUN/Creatinine Ratio 30.8
[2020-12-09] MEDS: ACCU-CHEK COMFORT CURVE STRIP VI SCH ×3 (05:46→22:06)
[2020-12-09] MEDS: InsuLIN REG 1unit/0.01ml Soln (100units/ml) SC SCH ×3 (05:47→22:00)
[2020-12-09] MEDS: FAMOTIDINE (10MG/ML) 2ML VL IV SCH (09:57)
[2020-12-09] MEDS: ASCORBIC ACID 1,000 MG TAB PO SCH (09:57)
[2020-12-09] MEDS: DexAMETHasone SOD PHOS 10MG/1ML VIAL INJ IV SCH (09:57)
[2020-12-09] MEDS: CHOLECALCIFEROL (VITD3) 2,000 UNIT CAP/TAB PO SCH (09:57)
[2020-12-09] MEDS: ZINC SULFATE 220mg CAP or TAB PO SCH (09:57)
[2020-12-09] MEDS: ENOXAPARIN SOD 40 MG/0.4 ML SYRINGE SC SCH ×2 (09:58→22:06)
[2020-12-09] MEDS: fentaNYL Drip 2500mCg/250mlNS 250 ML IV SCH ×2 (10:00→19:35)
[2020-12-09] MEDS: BUDESONIDE (INHALATION) 0.5 MG/2 ML NEB NEB SCH ×2 (10:00→19:01)
[2020-12-09] MEDS: SOD CHL 0.45% 1,000 ML IV SCH (11:15)
[2020-12-09] MEDS ORDERED: FUROSEMIDE 40 MG/4 ML VIAL IV ONE (11:15)
[2020-12-09] MEDS ORDERED: SENNA 8.6 MG TAB PO PRN (12:30)
[2020-12-09] MEDS: ALBUTEROL SULF 2.5 MG/0.5ML(0.5%) NEB SOLN NEB PRN ×2 (16:36→19:01)
[2020-12-09] MEDS: INSULIN LANTUS (GLARGINE) 1 /0.01ml (100units/ml) SC SCH (22:00)
[2020-12-09] MEDS: DOCUSATE ORAL LIQUID 100 MG/10 ML UD GT SCH (22:06)
[2020-12-09] MEDS: hydrALAZINE HCL 20 MG/ML VL IV PRN (23:19)
[2020-12-10] VITALS (103 sets, daily range): BP systolic 64–239; BP diastolic 42–116
[2020-12-10] MEDS: InsuLIN REG 1unit/0.01ml Soln (100units/ml) SC SCH ×3 (06:00→21:42)
[2020-12-10] MEDS: ACCU-CHEK COMFORT CURVE STRIP VI SCH ×3 (06:00→21:42)
[2020-12-10] MEDS: ALBUTEROL SULF 2.5 MG/0.5ML(0.5%) NEB SOLN NEB PRN ×2 (06:20→22:57)
[2020-12-10] MEDS: BUDESONIDE (INHALATION) 0.5 MG/2 ML NEB NEB SCH ×2 (06:20→22:57)
[2020-12-10] MEDS: SOD CHL 0.45% 1,000 ML IV SCH ×2 (07:15→22:00)
[2020-12-10 08:37] LABS: Basophils # (auto) 0 10 ^3/uL (0-0.2); Basophils % (auto) 0.2 % (0.0-2.0); Eosinophils # (auto) 0 10 ^3/uL (0-0.8); Eosinophils % (auto) 0.1 % (0.0-7.0); Hematocrit 33.9 % (36.0-46.0); Hemoglobin 11.2 g/dL (12.2-16.2); Lymphocytes # (auto) 1.4 10 ^3/uL (0.4-5.4); Lymphocytes % (auto) 10.8 % (10.0-50.0); Mean Corpuscular Hemoglobin 30.9 pg (28.0-32.0); Mean Corpuscular Hgb Conc. 33.1 g/dL (32.0-36.0); Mean Corpuscular Volume 93.5 fL (80.0-100.0); Monocytes # (auto) 1.2 10 ^3/uL (0-1.3); Monocytes % (auto) 9.5 % (0.0-12.0); Neutrophils % (auto) 79.4 % (37.0-80.0); Nucleated Red Blood Cells % 0.2 %; Red Blood Cells 3.62 10^6/uL (4.0-5.20); Red Cell Distribution Width 14.1 % (11.8-14.3); White Blood Cell 12.6 10^3/uL (4.4-10.8)
[2020-12-10 08:46] LABS: BUN/Creatinine Ratio 32.1; Potassium 3.6 mmol/L (3.5-5.1)
[2020-12-10 08:55] LABS: CRP High Sensitivity 14.5 mg/dL (< 0.3)
[2020-12-10] MEDS: ZINC SULFATE 220mg CAP or TAB PO SCH (10:00)
[2020-12-10] MEDS: POLYETHYLENE GLYCOL 17 GM PWDR PO SCH (10:00)
[2020-12-10] MEDS: FAMOTIDINE (10MG/ML) 2ML VL IV SCH (10:00)
[2020-12-10] MEDS: ENOXAPARIN SOD 40 MG/0.4 ML SYRINGE SC SCH ×2 (10:00→21:42)
[2020-12-10] MEDS: DOCUSATE ORAL LIQUID 100 MG/10 ML UD GT SCH ×2 (10:00→21:37)
[2020-12-10] MEDS: CHOLECALCIFEROL (VITD3) 2,000 UNIT CAP/TAB PO SCH (10:00)
[2020-12-10] MEDS: DexAMETHasone SOD PHOS 10MG/1ML VIAL INJ IV SCH (10:00)
[2020-12-10] MEDS: ASCORBIC ACID 1,000 MG TAB PO SCH (10:00)
[2020-12-10 10:28] LABS: Calcium 8.3 mg/dL (8.5-10.1)
[2020-12-10] MEDS: MIDAZOLAM DRIP 50 mg/50mL 50 ML IV SCH ×2 (13:00→20:00)
[2020-12-10] MEDS: NOREPINEPHRINE 8 MG/250ML KIT 250 ML IV SCH (14:15)
[2020-12-10] MEDS: PROPOFOL 100 ML IV SCH (21:00)
[2020-12-10] MEDS: fentaNYL Drip 2500mCg/250mlNS 250 ML IV SCH (21:37)
[2020-12-10] MEDS: INSULIN LANTUS (GLARGINE) 1 /0.01ml (100units/ml) SC SCH (21:41)
[2020-12-11] VITALS (105 sets, daily range): BP systolic 98–169; BP diastolic 41–70
[2020-12-11] MEDS: ACCU-CHEK COMFORT CURVE STRIP VI SCH ×3 (06:00→22:00)
[2020-12-11] MEDS: InsuLIN REG 1unit/0.01ml Soln (100units/ml) SC SCH ×3 (06:00→22:00)
[2020-12-11] MEDS: ALBUTEROL SULF 2.5 MG/0.5ML(0.5%) NEB SOLN NEB PRN ×2 (06:22→18:57)
[2020-12-11] MEDS: BUDESONIDE (INHALATION) 0.5 MG/2 ML NEB NEB SCH ×2 (06:22→18:57)
[2020-12-11] MEDS: MIDAZOLAM DRIP 50 mg/50mL 50 ML IV SCH ×2 (06:50→22:02)
[2020-12-11] MEDS: PROPOFOL 100 ML IV SCH ×2 (06:57→22:01)
[2020-12-11] MEDS: FAMOTIDINE (10MG/ML) 2ML VL IV SCH (10:00)
[2020-12-11] MEDS: DOCUSATE ORAL LIQUID 100 MG/10 ML UD GT SCH ×2 (10:00→21:59)
[2020-12-11] MEDS: ASCORBIC ACID 1,000 MG TAB PO SCH (10:00)
[2020-12-11] MEDS: ZINC SULFATE 220mg CAP or TAB PO SCH (10:00)
[2020-12-11] MEDS: DexAMETHasone SOD PHOS 10MG/1ML VIAL INJ IV SCH (10:00)
[2020-12-11] MEDS: ENOXAPARIN SOD 40 MG/0.4 ML SYRINGE SC SCH ×2 (10:00→22:00)
[2020-12-11] MEDS: CHOLECALCIFEROL (VITD3) 2,000 UNIT CAP/TAB PO SCH (10:00)
[2020-12-11] MEDS: POLYETHYLENE GLYCOL 17 GM PWDR PO SCH (10:00)
[2020-12-11] MEDS: NOREPINEPHRINE 8 MG/250ML KIT 250 ML IV SCH (14:15)
[2020-12-11] MEDS: fentaNYL Drip 2500mCg/250mlNS 250 ML IV SCH (21:59)
[2020-12-11] MEDS: INSULIN LANTUS (GLARGINE) 1 /0.01ml (100units/ml) SC SCH (22:00)
[2020-12-11] MEDS: METOCLOPRAMIDE HCL 5MG/ml INJ 2ml VIAL IV SCH (22:00)
[2020-12-11] MEDS: LACTULOSE 20Gm/30ML SOLN PO SCH (22:00)
[2020-12-11] MEDS: hydrALAZINE HCL 20 MG/ML VL IV PRN (22:11)
[2020-12-12] VITALS (103 sets, daily range): BP systolic 84–157; BP diastolic 42–97
[2020-12-12] MEDS: MIDAZOLAM DRIP 50 mg/50mL 50 ML IV SCH ×3 (01:00→16:59)
[2020-12-12] MEDS: ACCU-CHEK COMFORT CURVE STRIP VI SCH ×3 (05:48→17:00)
[2020-12-12] MEDS: InsuLIN REG 1unit/0.01ml Soln (100units/ml) SC SCH ×3 (05:48→17:00)
[2020-12-12] MEDS: METOCLOPRAMIDE HCL 5MG/ml INJ 2ml VIAL IV SCH ×2 (05:48→13:28)
[2020-12-12] MEDS: LACTULOSE 20Gm/30ML SOLN PO SCH ×3 (05:48→21:37)
[2020-12-12] MEDS: ALBUTEROL SULF 2.5 MG/0.5ML(0.5%) NEB SOLN NEB PRN ×2 (06:33→22:29)
[2020-12-12] MEDS: BUDESONIDE (INHALATION) 0.5 MG/2 ML NEB NEB SCH ×2 (06:33→22:29)
[2020-12-12] MEDS: ZINC SULFATE 220mg CAP or TAB PO SCH (09:19)
[2020-12-12] MEDS: DexAMETHasone SOD PHOS 10MG/1ML VIAL INJ IV SCH (09:19)
[2020-12-12] MEDS: ASCORBIC ACID 1,000 MG TAB PO SCH (09:19)
[2020-12-12] MEDS: CHOLECALCIFEROL (VITD3) 2,000 UNIT CAP/TAB PO SCH (09:19)
[2020-12-12] MEDS: FAMOTIDINE (10MG/ML) 2ML VL IV SCH (09:19)
[2020-12-12] MEDS: POLYETHYLENE GLYCOL 17 GM PWDR PO SCH (09:19)
[2020-12-12] MEDS: DOCUSATE ORAL LIQUID 100 MG/10 ML UD GT SCH ×2 (09:19→21:37)
[2020-12-12] MEDS: ENOXAPARIN SOD 40 MG/0.4 ML SYRINGE SC SCH ×2 (09:19→21:38)
[2020-12-12] MEDS: NOREPINEPHRINE 8 MG/250ML KIT 250 ML IV SCH (13:28)
[2020-12-12] MEDS: PROPOFOL 100 ML IV SCH ×3 (14:00→20:00)
[2020-12-12] MEDS ORDERED: TPN PER PHARMACY 0 ML IV SCH (15:45)
[2020-12-12] MEDS ORDERED: DEXTROSE (50%) 50ML SYRG IV SCH (18:00)
[2020-12-12 18:07] LABS: Albumin 1.4 g/dL (3.4-5.0); Calcium 7.9 mg/dL (8.5-10.1); Magnesium 2.4 mg/dL (1.6-2.6); Potassium 3.7 mmol/L (3.5-5.1)
[2020-12-12 18:10] LABS: Bilirubin, Total 0.8 mg/dL (0.2-1.0); Phosphorus 3.4 mg/dL (2.5-4.90); Total Protein 5.1 g/dL (6.4-8.2)
[2020-12-12] MEDS ORDERED: AMINO ACID INFUSION IN D10W 1,000 ML IV NR (20:00)
[2020-12-12] MEDS: fentaNYL Drip 2500mCg/250mlNS 250 ML IV SCH (20:03)
[2020-12-12] MEDS ORDERED: ONDANSETRON HCL 4 MG/2 ML VIAL ONE (22:00)
[2020-12-12] MEDS: INSULIN LANTUS (GLARGINE) 1 /0.01ml (100units/ml) SC SCH (22:00)
[2020-12-13] VITALS (106 sets, daily range): BP systolic 60–161; BP diastolic 30–111
[2020-12-13] MEDS: MIDAZOLAM DRIP 50 mg/50mL 50 ML IV SCH ×2 (03:00→20:03)
[2020-12-13 04:59] LABS: Basophils # (auto) 0 10 ^3/uL (0-0.2); Basophils % (auto) 0.3 % (0.0-2.0); Eosinophils # (auto) 0 10 ^3/uL (0-0.8); Eosinophils % (auto) 0.3 % (0.0-7.0); Hematocrit 31.7 % (36.0-46.0); Hemoglobin 10.5 g/dL (12.2-16.2); Lymphocytes # (auto) 1.2 10 ^3/uL (0.4-5.4); Lymphocytes % (auto) 12.6 % (10.0-50.0); Mean Corpuscular Hemoglobin 31.5 pg (28.0-32.0); Mean Corpuscular Hgb Conc. 33.2 g/dL (32.0-36.0); Monocytes # (auto) 0.6 10 ^3/uL (0-1.3); Monocytes % (auto) 6.4 % (0.0-12.0); Neutrophils # (auto) 7.4 10 ^3/uL (1.6-8.6); Neutrophils % (auto) 80.4 % (37.0-80.0); Red Blood Cells 3.34 10^6/uL (4.0-5.20); Red Cell Distribution Width 14.2 % (11.8-14.3); White Blood Cell 9.2 10^3/uL (4.4-10.8)
[2020-12-13 05:14] LABS: Albumin 1.4 g/dL (3.4-5.0); Calcium 8.2 mg/dL (8.5-10.1); Magnesium 2.2 mg/dL (1.6-2.6); Potassium 3.2 mmol/L (3.5-5.1)
[2020-12-13 05:18] LABS: BUN/Creatinine Ratio 24.6; Bilirubin, Total 0.6 mg/dL (0.2-1.0); Phosphorus 2.4 mg/dL (2.5-4.90); Pre Albumin 13.6 mg/dL (20.0-40.0)
[2020-12-13] MEDS: ACCU-CHEK COMFORT CURVE STRIP VI SCH ×4 (05:51→18:04)
[2020-12-13] MEDS: InsuLIN REG 1unit/0.01ml Soln (100units/ml) SC SCH ×4 (05:51→18:04)
[2020-12-13] MEDS: LACTULOSE 20Gm/30ML SOLN PO SCH ×3 (05:51→22:00)
[2020-12-13] MEDS: BUDESONIDE (INHALATION) 0.5 MG/2 ML NEB NEB SCH ×2 (06:20→19:01)
[2020-12-13] MEDS: ALBUTEROL SULF 2.5 MG/0.5ML(0.5%) NEB SOLN NEB PRN ×2 (06:20→19:01)
[2020-12-13] MEDS ORDERED: POTASSIUM PHOSP 22MEQ(15MMOLE) in NS 100 ML IV ONE (09:00)
[2020-12-13] MEDS: DOCUSATE ORAL LIQUID 100 MG/10 ML UD GT SCH ×2 (10:28→21:59)
[2020-12-13] MEDS: ENOXAPARIN SOD 40 MG/0.4 ML SYRINGE SC SCH ×2 (10:29→22:01)
[2020-12-13] MEDS: FAMOTIDINE (10MG/ML) 2ML VL IV SCH (10:29)
[2020-12-13] MEDS: ZINC SULFATE 220mg CAP or TAB PO SCH (10:29)
[2020-12-13] MEDS: DexAMETHasone SOD PHOS 10MG/1ML VIAL INJ IV SCH (10:29)
[2020-12-13] MEDS: CHOLECALCIFEROL (VITD3) 2,000 UNIT CAP/TAB PO SCH (10:29)
[2020-12-13] MEDS: POLYETHYLENE GLYCOL 17 GM PWDR PO SCH (10:29)
[2020-12-13] MEDS: ASCORBIC ACID 1,000 MG TAB PO SCH (10:29)
[2020-12-13] MEDS: NOREPINEPHRINE 8 MG/250ML KIT 250 ML IV SCH (14:15)
[2020-12-13] MEDS: LEVOTHYROXINE SODIUM 25 MCG TAB PO SCH (14:58)
[2020-12-13] MEDS: PROPOFOL 100 ML IV SCH ×2 (19:00→23:00)
[2020-12-13] MEDS: fentaNYL Drip 2500mCg/250mlNS 250 ML IV SCH (20:00)
[2020-12-13] MEDS ORDERED: TPN PER PHARMACY IV NR ×7 (20:00)
[2020-12-13] MEDS: INSULIN LANTUS (GLARGINE) 1 /0.01ml (100units/ml) SC SCH (22:01)
[2020-12-14] VITALS (107 sets, daily range): BP systolic 44–149; BP diastolic 33–113
[2020-12-14] MEDS: PROPOFOL 100 ML IV SCH ×6 (03:00→21:00)
[2020-12-14] MEDS: MIDAZOLAM DRIP 50 mg/50mL 50 ML IV SCH ×5 (03:30→17:09)
[2020-12-14 04:33] LABS: Albumin 1.3 g/dL (3.4-5.0); BUN/Creatinine Ratio 21.7; Calcium 7.6 mg/dL (8.5-10.1); Potassium 3.4 mmol/L (3.5-5.1)
[2020-12-14 04:36] LABS: Bilirubin, Total 0.5 mg/dL (0.2-1.0); Phosphorus 3.2 mg/dL (2.5-4.90); Total Protein 5.5 g/dL (6.4-8.2)
[2020-12-14] MEDS: InsuLIN REG 1unit/0.01ml Soln (100units/ml) SC SCH ×4 (06:00→18:45)
[2020-12-14] MEDS: ACCU-CHEK COMFORT CURVE STRIP VI SCH ×4 (06:00→18:26)
[2020-12-14] MEDS: LACTULOSE 20Gm/30ML SOLN PO SCH ×3 (06:00→22:00)
[2020-12-14] MEDS: ALBUTEROL SULF 2.5 MG/0.5ML(0.5%) NEB SOLN NEB PRN ×2 (06:09→22:33)
[2020-12-14] MEDS: BUDESONIDE (INHALATION) 0.5 MG/2 ML NEB NEB SCH ×2 (06:09→22:33)
[2020-12-14] MEDS: LEVOTHYROXINE SODIUM 25 MCG TAB PO SCH (07:01)
[2020-12-14] MEDS ORDERED: POTASSIUM CHL 20MEQ/100ML 100 ML IV ONE (09:15)
[2020-12-14] MEDS ORDERED: ROCURONIUM 10MG/ML 10ML VIAL IV ONE ×2 (09:19→09:30)
[2020-12-14] MEDS: fentaNYL Drip 2500mCg/250mlNS 250 ML IV SCH (10:28)
[2020-12-14] MEDS: NOREPINEPHRINE 8 MG/250ML KIT 250 ML IV SCH ×2 (10:30→20:00)
[2020-12-14] MEDS: FAMOTIDINE (10MG/ML) 2ML VL IV SCH (10:39)
[2020-12-14] MEDS: DOCUSATE ORAL LIQUID 100 MG/10 ML UD GT SCH ×2 (10:39→22:00)
[2020-12-14] MEDS: POLYETHYLENE GLYCOL 17 GM PWDR PO SCH (10:39)
[2020-12-14] MEDS: ENOXAPARIN SOD 40 MG/0.4 ML SYRINGE SC SCH ×2 (10:39→22:00)
[2020-12-14] MEDS: DexAMETHasone SOD PHOS 10MG/1ML VIAL INJ IV SCH (10:39)
[2020-12-14] MEDS: CHOLECALCIFEROL (VITD3) 2,000 UNIT CAP/TAB PO SCH (10:40)
[2020-12-14] MEDS: ZINC SULFATE 220mg CAP or TAB PO SCH (10:40)
[2020-12-14] MEDS: ASCORBIC ACID 1,000 MG TAB PO SCH (10:40)
[2020-12-14] MEDS ORDERED: SODIUM CHLORIDE 0.9% 500 ML IV ONE (12:30)
[2020-12-14] MEDS ORDERED: VANCOMYCIN PER PHARMACY 0 MG IV SCH (17:45)
[2020-12-14] MEDS ORDERED: VANCOMYCIN 1GM/250ML 250 ML IV ONE (18:00)
[2020-12-14] MEDS: VANCOMYCIN 1GM/250ML 250 ML IV SCH (19:36)
[2020-12-14] MEDS ORDERED: TPN PER PHARMACY IV NR ×8 (20:00)
[2020-12-14] MEDS: INSULIN LANTUS (GLARGINE) 1 /0.01ml (100units/ml) SC SCH (22:00)
[2020-12-15] VITALS (104 sets, daily range): BP systolic 83–144; BP diastolic 36–63
[2020-12-15] MEDS: PROPOFOL 100 ML IV SCH ×6 (01:55→20:00)
[2020-12-15] MEDS: fentaNYL Drip 2500mCg/250mlNS 250 ML IV SCH ×3 (02:49→20:00)
[2020-12-15] MEDS: MIDAZOLAM DRIP 50 mg/50mL 50 ML IV SCH ×7 (03:00→22:00)
[2020-12-15 05:00] LABS: Hematocrit 33.1 % (36.0-46.0); Hemoglobin 10.5 g/dL (12.2-16.2); Mean Corpuscular Hemoglobin 32.1 pg (28.0-32.0); Mean Corpuscular Hgb Conc. 31.9 g/dL (32.0-36.0); Mean Corpuscular Volume 100.7 fL (80.0-100.0); Red Blood Cells 3.28 10^6/uL (4.0-5.20); Red Cell Distribution Width 15.5 % (11.8-14.3); White Blood Cell 19.5 10^3/uL (4.4-10.8)
[2020-12-15 05:17] LABS: Basophils % (manual) 0 (0.0-2.0); Blast Cells 0; Eosinophils % (manual) 0 (0-7); Metamyelocytes % 0; Promyelocytes % 0; Reactive Lymphocytes 0
[2020-12-15 05:19] LABS: Albumin 1.2 g/dL (3.4-5.0); Calcium 7.1 mg/dL (8.5-10.1); Potassium 5.5 mmol/L (3.5-5.1)
[2020-12-15 05:22] LABS: INR 1.21 (0.9-1.15); Partial Thromboplastin Time 30.4 sec (23.6-33.0)
[2020-12-15 05:25] LABS: BUN/Creatinine Ratio 14.4; Bilirubin, Total 0.9 mg/dL (0.2-1.0); Magnesium 2.1 mg/dL (1.6-2.6); Total Protein 5.7 g/dL (6.4-8.2)
[2020-12-15] MEDS: VANCOMYCIN 1GM/250ML 250 ML IV SCH (06:00)
[2020-12-15] MEDS: InsuLIN REG 1unit/0.01ml Soln (100units/ml) SC SCH ×4 (06:00→18:00)
[2020-12-15] MEDS: LACTULOSE 20Gm/30ML SOLN PO SCH ×2 (06:00→13:17)
[2020-12-15] MEDS: ACCU-CHEK COMFORT CURVE STRIP VI SCH ×4 (06:00→18:00)
[2020-12-15] MEDS: BUDESONIDE (INHALATION) 0.5 MG/2 ML NEB NEB SCH ×2 (06:30→23:50)
[2020-12-15] MEDS: ALBUTEROL SULF 2.5 MG/0.5ML(0.5%) NEB SOLN NEB PRN ×2 (06:30→23:50)
[2020-12-15] MEDS: NOREPINEPHRINE 8 MG/250ML KIT 250 ML IV SCH ×2 (07:00→19:00)
[2020-12-15] MEDS: LEVOTHYROXINE SODIUM 25 MCG TAB PO SCH (07:01)
[2020-12-15 07:05] LABS: Band Neutrophils % (manual) 65; Lymphocytes % (manual) 8 (10.0-50.0); Monocytes % (manual) 3 (0-12); Myelocytes % 12
[2020-12-15] MEDS: POLYETHYLENE GLYCOL 17 GM PWDR PO SCH (09:01)
[2020-12-15] MEDS: DexAMETHasone SOD PHOS 4 MG/1ML SDV INJ IV SCH (09:01)
[2020-12-15] MEDS: ZINC SULFATE 220mg CAP or TAB PO SCH (09:01)
[2020-12-15] MEDS: FAMOTIDINE (10MG/ML) 2ML VL IV SCH (09:01)
[2020-12-15] MEDS: DOCUSATE ORAL LIQUID 100 MG/10 ML UD GT SCH (09:02)
[2020-12-15] MEDS: CHOLECALCIFEROL (VITD3) 2,000 UNIT CAP/TAB PO SCH (09:02)
[2020-12-15] MEDS: ASCORBIC ACID 1,000 MG TAB PO SCH (09:02)
[2020-12-15] MEDS: ENOXAPARIN SOD 40 MG/0.4 ML SYRINGE SC SCH ×2 (10:00→22:00)
[2020-12-15] MEDS ORDERED: SODIUM BICARBONATE 8.4 % INJ 50ML VIAL IV ONE (12:30)
[2020-12-15] MEDS ORDERED: AMINO ACID INFUSION IN D10W 1,000 ML IV NR (12:30)
[2020-12-15] MEDS ORDERED: TPN PER PHARMACY IV NR ×7 (20:00)
[2020-12-15] MEDS: CEFTAROLINE 300 MG in SODIUM CHL 0.9% 250 ML IV SCH (22:00)
[2020-12-15] MEDS: INSULIN LANTUS (GLARGINE) 1 /0.01ml (100units/ml) SC SCH (22:00)
[2020-12-16] VITALS (99 sets, daily range): BP systolic 86–115; BP diastolic 36–57
[2020-12-16] MEDS: PROPOFOL 100 ML IV SCH ×6 (00:05→23:30)
[2020-12-16] MEDS: MIDAZOLAM DRIP 50 mg/50mL 50 ML IV SCH ×6 (01:30→23:00)
[2020-12-16] MEDS: fentaNYL Drip 2500mCg/250mlNS 250 ML IV SCH ×3 (03:38→19:00)
[2020-12-16] MEDS: NOREPINEPHRINE 8 MG/250ML KIT 250 ML IV SCH ×2 (03:40→19:00)
[2020-12-16] MEDS: ACCU-CHEK COMFORT CURVE STRIP VI SCH ×4 (05:43→16:51)
[2020-12-16] MEDS: InsuLIN REG 1unit/0.01ml Soln (100units/ml) SC SCH ×4 (05:44→16:50)
[2020-12-16 06:10] LABS: Albumin 1.2 g/dL (3.4-5.0); Calcium 7.3 mg/dL (8.5-10.1); Magnesium 2.5 mg/dL (1.6-2.6); Potassium 5.4 mmol/L (3.5-5.1)
[2020-12-16 06:15] LABS: BUN/Creatinine Ratio 12.8; Bilirubin, Total 1.8 mg/dL (0.2-1.0); Phosphorus 6.9 mg/dL (2.5-4.90); Total Protein 5.8 g/dL (6.4-8.2)
[2020-12-16] MEDS: BUDESONIDE (INHALATION) 0.5 MG/2 ML NEB NEB SCH ×2 (06:27→22:18)
[2020-12-16] MEDS: ALBUTEROL SULF 2.5 MG/0.5ML(0.5%) NEB SOLN NEB PRN ×2 (06:27→22:18)
[2020-12-16] MEDS: ENOXAPARIN SOD 40 MG/0.4 ML SYRINGE SC SCH ×2 (10:00→22:00)
[2020-12-16] MEDS ORDERED: LEVOTHYROXINE SODIUM 100 MCG/5 ML INJ IV ONE (10:30)
[2020-12-16] MEDS: DexAMETHasone SOD PHOS 4 MG/1ML SDV INJ IV SCH (10:32)
[2020-12-16] MEDS: FAMOTIDINE (10MG/ML) 2ML VL IV SCH (10:33)
[2020-12-16] MEDS: CEFTAROLINE 300 MG in SODIUM CHL 0.9% 250 ML IV SCH ×2 (10:38→21:59)
[2020-12-16] MEDS ORDERED: SODIUM BICARBONATE 8.4 % INJ 50ML VIAL IV ONE (16:00)
[2020-12-16 17:16] LABS: Basophils # (auto) 0 10 ^3/uL (0-0.2); Basophils % (auto) 0.2 % (0.0-2.0); Eosinophils # (auto) 0 10 ^3/uL (0-0.8); Eosinophils % (auto) 0.1 % (0.0-7.0); Hematocrit 28.5 % (36.0-46.0); Lymphocytes % (auto) 5.7 % (10.0-50.0); Mean Corpuscular Hemoglobin 31.2 pg (28.0-32.0); Mean Corpuscular Hgb Conc. 31.6 g/dL (32.0-36.0); Mean Corpuscular Volume 98.5 fL (80.0-100.0); Monocytes # (auto) 0.8 10 ^3/uL (0-1.3); Monocytes % (auto) 4.6 % (0.0-12.0); Neutrophils # (auto) 15.3 10 ^3/uL (1.6-8.6); Neutrophils % (auto) 89.4 % (37.0-80.0); Nucleated Red Blood Cells % 0.8 %; Red Blood Cells 2.89 10^6/uL (4.0-5.20); Red Cell Distribution Width 15.7 % (11.8-14.3); White Blood Cell 17.1 10^3/uL (4.4-10.8)
[2020-12-16] MEDS: TPN PER PHARMACY IV NR ×7 (19:55)
[2020-12-16] MEDS: INSULIN LANTUS (GLARGINE) 1 /0.01ml (100units/ml) SC SCH (22:01)
[2020-12-17] VITALS (100 sets, daily range): BP systolic 38–144; BP diastolic 17–72
[2020-12-17] MEDS: MIDAZOLAM DRIP 50 mg/50mL 50 ML IV SCH ×7 (01:30→22:36)
[2020-12-17] MEDS: fentaNYL Drip 2500mCg/250mlNS 250 ML IV SCH ×2 (04:00→16:50)
[2020-12-17] MEDS: NOREPINEPHRINE 8 MG/250ML KIT 250 ML IV SCH ×4 (04:00→22:35)
[2020-12-17 04:23] LABS: Calcium 7.4 mg/dL (8.5-10.1); Magnesium 2.6 mg/dL (1.6-2.6)
[2020-12-17 04:25] LABS: Albumin 1.1 g/dL (3.4-5.0); BUN/Creatinine Ratio 13.6
[2020-12-17] MEDS: PROPOFOL 100 ML IV SCH ×5 (04:30→22:36)
[2020-12-17 04:31] LABS: Bilirubin, Total 2.4 mg/dL (0.2-1.0); Phosphorus 7.7 mg/dL (2.5-4.90)
[2020-12-17 04:43] LABS: Potassium 6.2 mmol/L (3.5-5.1)
[2020-12-17] MEDS ORDERED: CALCIUM GLUC 1,000mg/50ml-NS 50 ML IV ONE (05:15)
[2020-12-17] MEDS ORDERED: SODIUM ZIRCONIUM CYCL 10 GM PAK PO ONE (05:15)
[2020-12-17] MEDS ORDERED: InsuLIN REG 1unit/0.01ml Soln (100units/ml) IV ONE (05:15)
[2020-12-17] MEDS ORDERED: DEXTROSE (50%) 50ML SYRG IV ONE (05:15)
[2020-12-17] MEDS: InsuLIN REG 1unit/0.01ml Soln (100units/ml) SC SCH ×4 (06:14→18:00)
[2020-12-17] MEDS: ACCU-CHEK COMFORT CURVE STRIP VI SCH ×4 (06:14→18:00)
[2020-12-17] MEDS: ALBUTEROL SULF 2.5 MG/0.5ML(0.5%) NEB SOLN NEB PRN ×2 (06:55→22:25)
[2020-12-17] MEDS: BUDESONIDE (INHALATION) 0.5 MG/2 ML NEB NEB SCH ×2 (06:55→22:25)
[2020-12-17] MEDS ORDERED: ETOMIDATE (2MG/ML) 20ML VIAL IV ONE (08:00)
[2020-12-17] MEDS ORDERED: SUCCINYLCHOLINE CHLORIDE 20 MG/ML 10ML VIAL IV ONE (08:01)
[2020-12-17] MEDS: CEFTAROLINE 300 MG in SODIUM CHL 0.9% 250 ML IV SCH ×2 (09:12→21:06)
[2020-12-17 09:13] LABS: Calcium 7.8 mg/dL (8.5-10.1)
[2020-12-17] MEDS: ENOXAPARIN SOD 40 MG/0.4 ML SYRINGE SC SCH (09:16)
[2020-12-17] MEDS: DexAMETHasone SOD PHOS 4 MG/1ML SDV INJ IV SCH (09:16)
[2020-12-17] MEDS: LEVOTHYROXINE SODIUM 100 MCG/5 ML INJ IV SCH (09:46)
[2020-12-17] MEDS: VASOPRESSIN 50 UNITS in D5W 5% 247.5 ML IV SCH (11:45)
[2020-12-17] MEDS: SODIUM BICARBONATE 50ML VIAL 150 ML in D5W 5% 1,000 ML IV SCH (15:00)
[2020-12-17] MEDS: TPN PER PHARMACY IV NR ×7 (19:51)
[2020-12-17] MEDS ORDERED: TPN PER PHARMACY IV NR ×7 (20:00)
[2020-12-17] MEDS: INSULIN LANTUS (GLARGINE) 1 /0.01ml (100units/ml) SC SCH (21:07)
[2020-12-18] VITALS (73 sets, daily range): BP systolic 47–148; BP diastolic 18–66
[2020-12-18] MEDS: InsuLIN REG 1unit/0.01ml Soln (100units/ml) SC SCH ×3 (00:05→12:00)
[2020-12-18] MEDS: ACCU-CHEK COMFORT CURVE STRIP VI SCH ×3 (00:05→12:00)
[2020-12-18] MEDS: SODIUM BICARBONATE 50ML VIAL 150 ML in D5W 5% 1,000 ML IV SCH ×3 (01:15→12:30)
[2020-12-18] MEDS: VASOPRESSIN 50 UNITS in D5W 5% 247.5 ML IV SCH (06:15)
[2020-12-18 06:22] LABS: Calcium 6.8 mg/dL (8.5-10.1); Magnesium 2.6 mg/dL (1.6-2.6)
[2020-12-18] MEDS: ALBUTEROL SULF 2.5 MG/0.5ML(0.5%) NEB SOLN NEB PRN (06:27)
[2020-12-18] MEDS: BUDESONIDE (INHALATION) 0.5 MG/2 ML NEB NEB SCH (06:27)
[2020-12-18 06:34] LABS: Bilirubin, Total 4.2 mg/dL (0.2-1.0); Phosphorus 8.4 mg/dL (2.5-4.90)
[2020-12-18 08:56] LABS: BUN/Creatinine Ratio 13.4
[2020-12-18 08:58] LABS: Potassium 6.6 mmol/L (3.5-5.1)
[2020-12-18] MEDS: fentaNYL Drip 2500mCg/250mlNS 250 ML IV SCH (09:19)
[2020-12-18] MEDS ORDERED: DEXTROSE (50%) 50ML SYRG IV ONE (09:45)
[2020-12-18] MEDS ORDERED: InsuLIN REG 1unit/0.01ml Soln (100units/ml) IV ONE (09:45)
[2020-12-18] MEDS ORDERED: DOPamine 1600MCG/ML D5W 250 ML IV SCH (09:45)
[2020-12-18] MEDS ORDERED: SODIUM BICARBONATE 8.4 % INJ 50ML VIAL IV ONE ×2 (09:45→14:18)
[2020-12-18] MEDS ORDERED: CALCIUM CHL 100MG/ML 1,000 MG in D5W 5% 100 ML IV ONE (09:45)
[2020-12-18] MEDS ORDERED: ENOXAPARIN SOD 40 MG/0.4 ML SYRINGE SC SCH (10:00)
[2020-12-18] MEDS ORDERED: CEFTAROLINE 300 MG in SODIUM CHL 0.9% 250 ML IV SCH (10:00)
[2020-12-18] MEDS ORDERED: FAMOTIDINE (10MG/ML) 2ML VL IV SCH (10:00)
[2020-12-18] MEDS: LEVOTHYROXINE SODIUM 100 MCG/5 ML INJ IV SCH (10:59)
[2020-12-18] MEDS: DexAMETHasone SOD PHOS 4 MG/1ML SDV INJ IV SCH (11:01)
[2020-12-18] MEDS ORDERED: SODIUM ZIRCONIUM CYCL 10 GM PAK PO SCH (14:00)
[2020-12-18 16:17] LABS: Hematocrit 23.5 % (36.0-46.0); Hemoglobin 7.5 g/dL (12.2-16.2); Mean Corpuscular Hemoglobin 33.4 pg (28.0-32.0); Mean Corpuscular Hgb Conc. 31.8 g/dL (32.0-36.0); Red Blood Cells 2.24 10^6/uL (4.0-5.20); Red Cell Distribution Width 17.2 % (11.8-14.3); White Blood Cell 23.8 10^3/uL (4.4-10.8)
[2020-12-18 16:21] LABS: Basophils % (manual) 0 (0.0-2.0); Blast Cells 0; Eosinophils % (manual) 0 (0-7); Promyelocytes % 0
[2020-12-18 16:35] LABS: Calcium 6.3 mg/dL (8.5-10.1)
[2020-12-18 17:13] LABS: Potassium 6.9 mmol/L (3.5-5.1)
[2020-12-18 17:32] LABS: Band Neutrophils % (manual) 40; Lymphocytes % (manual) 5 (10.0-50.0); Metamyelocytes % 13; Monocytes % (manual) 5 (0-12); Myelocytes % 6; Reactive Lymphocytes 7
[2020-12-18] MEDS ORDERED: TPN PER PHARMACY IV NR ×6 (20:00)
[2020-12-18] MEDS ORDERED: SODIUM BICARBONATE 8.4% INJ 50ML SYRINGE IV ONE (20:06)
[2020-12-18] MEDS ORDERED: CALCIUM CHLOR(10%) 100MG/ML 10ML SYRINGE IV ONE (20:06)
[2020-12-18] MEDS ORDERED: ATROPINE SULF 1 MG/10ml SYR IM ONE (20:06)
[2020-12-18] MEDS ORDERED: CEFTAROLINE 200 MG in SODIUM CHL 0.9% 100 ML IV SCH (22:00)
== END 2020-12-18 20:07 | DRG 870 ==
LOC: EDBD 17:45 → ER 17:45 → OVERFLOW 19:41 → ICU WEST 12-03 12:13
PROVIDERS: ADMIT Nurse Practitioner Acute Care; ATTEND Internal Medicine
PROC: 5A09357 Assistance with Respiratory Ventilation, Less than 24 Consecutive Hours, Continuous Positive Airway Pressure (ICD-10-PCS; 2020-11-26)
PROC: XW033E5 Introduction of Remdesivir Anti-infective into Peripheral Vein, Percutaneous Approach, New Technology Group 5 (ICD-10-PCS; 2020-11-26)
PROC: 5A1955Z Respiratory Ventilation, Greater than 96 Consecutive Hours (ICD-10-PCS; 2020-11-27)
PROC: 0BH17EZ Insertion of Endotracheal Airway into Trachea, Via Natural or Artificial Opening (ICD-10-PCS; 2020-11-27)
PROC: 02HV33Z Insertion of Infusion Device into Superior Vena Cava, Percutaneous Approach (ICD-10-PCS; 2020-11-27)
PROC: B548ZZA Ultrasonography of Superior Vena Cava, Guidance (ICD-10-PCS; 2020-11-27)
PROC: XW033H5 Introduction of Tocilizumab into Peripheral Vein, Percutaneous Approach, New Technology Group 5 (ICD-10-PCS; 2020-11-27)
PROC: 02HV33Z Insertion of Infusion Device into Superior Vena Cava, Percutaneous Approach (ICD-10-PCS; principal; 2020-12-03)
PROC: 03HY32Z Insertion of Monitoring Device into Upper Artery, Percutaneous Approach (ICD-10-PCS; 2020-12-05)
PROC: 4A133B1 Monitoring of Arterial Pressure, Peripheral, Percutaneous Approach (ICD-10-PCS; 2020-12-05)
PROC: 4A133J1 Monitoring of Arterial Pulse, Peripheral, Percutaneous Approach (ICD-10-PCS; 2020-12-05)
PROC: 5A12012 Performance of Cardiac Output, Single, Manual (ICD-10-PCS; 2020-12-18)
DX: A41.89 Other specified sepsis (principal); U07.1 COVID-19; J96.01 Acute respiratory failure with hypoxia; J12.82 Pneumonia due to coronavirus disease 2019; N17.0 Acute kidney failure with tubular necrosis; R65.21 Severe sepsis with septic shock; G92.8 Other toxic encephalopathy; G93.1 Anoxic brain damage, not elsewhere classified; Z99.11 Dependence on respirator [ventilator] status; E66.9 Obesity, unspecified; E88.09 Other disorders of plasma-protein metabolism, not elsewhere classified; D89.839 Cytokine release syndrome, grade unspecified; E11.22 Type 2 diabetes mellitus with diabetic chronic kidney disease; E11.65 Type 2 diabetes mellitus with hyperglycemia; N18.31 Chronic kidney disease, stage 3a; J45.909 Unspecified asthma, uncomplicated; Z68.35 Body mass index [BMI] 35.0-35.9, adult; K59.00 Constipation, unspecified; E87.5 Hyperkalemia; I45.10 Unspecified right bundle-branch block; I46.9 Cardiac arrest, cause unspecified; R31.9 Hematuria, unspecified
CPT/HCPCS: 31500; 36415; 36600; 70450; 71045; 74018; 80048; 80053; 81001; 82040; 82310; 82728; 82805; 82962; 83036; 83605; 83735; 83880; 84100; 84132; 84439; 84443; 84478; 84484; 85007; 85025; 85027; 85379; 85610; 85730; 86141; 87040; 87070; 87077; 87081; 87186; 87205; 87426; 87804; 92950; 93005; 93970; 94002; 94003; 94640; 94660; 95819; 96365; 96366; 96367; 96368; 96375; 99291; A4618; G0378; J0330; J0696; J0712; J1100; J1815; J2250; J2405; J2704; J3480; J3490; J7060; J7131